=== PATIENT | male | born 1980 | race Caucasian/White ===

== ENCOUNTER → 2019-11-06 | Outpatient (REF) | payer OTHER ==
[2019-11-06 12:11] LABS: BASO % 0.5 % (0.0-1.0); EOS # 0.3 10^3/uL (0.0-0.5); EOS % 3.1 % (0.0-3.0); HEMATOCRIT 44.7 % (42.0-52.0); HEMOGLOBIN 14.7 g/dl (13.5-17.5); LYMPH # 2.4 10^3/uL (1.5-5.0); LYMPH % 28.8 % (24.0-44.0); MEAN CORPUSCULAR HEMOGLOBIN 29.2 pg (27.0-33.0); MEAN CORPUSCULAR HGB CONC 32.9 g/dl (32.0-36.5); MEAN CORPUSCULAR VOLUME 88.7 fl (80.0-96.0); MONO # 0.8 10^3/uL (0.0-0.8); MONO % 9.7 % (0.0-5.0); NEUTROPHILS # 4.9 10^3/uL (1.5-8.5); NEUTROPHILS % 57.3 % (36.0-66.0); PLATELET COUNT, AUTOMATED 244 10^3/uL (150-450); RED BLOOD COUNT 5.04 10^6/uL (4.30-6.10); WHITE BLOOD COUNT 8.5 10^3/uL (4.0-10.0)
[2019-11-06 12:43] LABS: ALBUMIN 3.9 GM/DL (3.2-5.2); ALT/SGPT 151 U/L (12-78); BILIRUBIN,TOTAL 0.5 MG/DL (0.2-1.0); BLOOD UREA NITROGEN 18 MG/DL (7-18); CALCIUM LEVEL 9.2 MG/DL (8.5-10.1); CARBON DIOXIDE LEVEL 27 MEQ/L (21-32); CHLORIDE LEVEL 106 MEQ/L (98-107); CHOLESTEROL LEVEL 252 MG/DL (<200); CHOLESTEROL RISK RATIO 6.461 (<5); CREATININE FOR GFR 0.76 MG/DL (0.70-1.30); GLOMERULAR FILTRATION RATE > 60.0 (>60); GLUCOSE, FASTING 99 MG/DL (70-100); HDL CHOLESTEROL 39 MG/DL (>40); LDL CHOLESTEROL 169 MG/DL (<100); NON-HDL-C 213 MG/DL; POTASSIUM SERUM 4.2 MEQ/L (3.5-5.1); SODIUM LEVEL 140 MEQ/L (136-145); TOTAL 25(OH) VITAMIN D 18.2 NG/ML (30.0-100.0); TOTAL PROTEIN 7.3 GM/DL (6.4-8.2); TRIGLYCERIDES LEVEL 221 MG/DL (<150)
[2019-11-06 15:23] LABS: HEMOGLOBIN A1c 5.8 %
== END ==
LOC: M LAB REF 11:49
PROVIDERS: ATTEND Family Medicine
DX: J44.9 Chronic obstructive pulmonary disease, unspecified (principal); E78.5 Hyperlipidemia, unspecified

== ENCOUNTER → 2019-11-10 | Outpatient (REF) | payer OTHER, MEDICARE ==
[2019-11-10 16:49] LABS: BASO # 0.1 10^3/uL (0.0-0.2); BASO % 0.6 % (0.0-1.0); EOS # 0.2 10^3/uL (0.0-0.5); EOS % 1.7 % (0.0-3.0); HEMATOCRIT 49.3 % (42.0-52.0); HEMOGLOBIN 16.3 g/dl (13.5-17.5); LYMPH # 2.3 10^3/uL (1.5-5.0); LYMPH % 23.5 % (24.0-44.0); MEAN CORPUSCULAR HEMOGLOBIN 30.6 pg (27.0-33.0); MEAN CORPUSCULAR HGB CONC 33.1 g/dl (32.0-36.5); MEAN CORPUSCULAR VOLUME 92.5 fl (80.0-96.0); MONO # 0.6 10^3/uL (0.0-0.8); MONO % 6.2 % (0.0-5.0); NEUTROPHILS # 6.7 10^3/uL (1.5-8.5); NEUTROPHILS % 67.6 % (36.0-66.0); PLATELET COUNT, AUTOMATED 288 10^3/uL (150-450); RED BLOOD COUNT 5.33 10^6/uL (4.30-6.10); WHITE BLOOD COUNT 9.9 10^3/uL (4.0-10.0)
[2019-11-10 17:03] LABS: ALBUMIN 3.9 GM/DL (3.2-5.2); ALT/SGPT 34 U/L (12-78); BILIRUBIN,TOTAL 0.3 MG/DL (0.2-1.0); BLOOD UREA NITROGEN 7 MG/DL (7-18); CALCIUM LEVEL 8.8 MG/DL (8.5-10.1); CARBON DIOXIDE LEVEL 26 MEQ/L (21-32); CHLORIDE LEVEL 109 MEQ/L (98-107); CHOLESTEROL LEVEL 175 MG/DL (<200); CHOLESTEROL RISK RATIO 4.375 (<5); CREATININE FOR GFR 0.81 MG/DL (0.70-1.30); FREE T4 0.94 NG/DL (0.76-1.46); GLOMERULAR FILTRATION RATE > 60.0 (>60); GLUCOSE, FASTING 86 MG/DL (70-100); HDL CHOLESTEROL 40 MG/DL (>40); LDL CHOLESTEROL 111 MG/DL (<100); NON-HDL-C 135 MG/DL; POTASSIUM SERUM 4.4 MEQ/L (3.5-5.1); SODIUM LEVEL 138 MEQ/L (136-145); THYROID STIMULATING HORMONE 0.822 uIU/ML (0.358-3.740); TOTAL 25(OH) VITAMIN D 21.5 NG/ML (30.0-100.0); TOTAL PROTEIN 7.1 GM/DL (6.4-8.2); TRIGLYCERIDES LEVEL 119 MG/DL (<150)
[2019-11-10 20:54] LABS: HEMOGLOBIN A1c 5.4 %
== END ==
LOC: M LAB REF 15:57
PROVIDERS: ATTEND Nurse Practitioner Family
DX: E78.5 Hyperlipidemia, unspecified (principal); J44.9 Chronic obstructive pulmonary disease, unspecified; M54.89 Other dorsalgia

== ENCOUNTER 2019-12-29 13:16 | Emergency (ER) | payer MEDICARE, OTHER ==
[~2019-12-29] VITALS: Ht 177.8 cm; Wt 68.4 kg
[2019-12-29 13:55] LABS: HEMATOCRIT 45.2 % (42.0-52.0); MEAN CORPUSCULAR HEMOGLOBIN 30.7 pg (27.0-33.0); MEAN CORPUSCULAR HGB CONC 33.2 g/dl (32.0-36.5); MEAN CORPUSCULAR VOLUME 92.4 fl (80.0-96.0); PLATELET COUNT, AUTOMATED 297 10^3/uL (150-450); RED BLOOD COUNT 4.89 10^6/uL (4.30-6.10)
[2019-12-29] MEDS ORDERED: INCR1INH INH (13:56)
[2019-12-29] MEDS ORDERED: ALBU8.5H INH (13:56)
[2019-12-29] MEDS ORDERED: ATOR1TAB21 PO (13:56)
[2019-12-29 14:07] LABS: INR 1.08; PROTHROMBIN TIME 13.7 SECONDS (11.8-14.0)
[2019-12-29 14:19] LABS: D-DIMER QUANT 3418.33 ng/ml (<500)
[2019-12-29] MEDS ORDERED: KETOROLAC 30 MG/ML 1ML VIAL IV ONE (14:30)
[2019-12-29] MEDS ORDERED: ISOVUE-370 76% 100ML VIAL As Ordered ONE (14:35)
[2019-12-29 17:58] VITALS: BP 111/63
--- NOTE | 2019-12-29 17:59 | REP ---
CHEST: Single view. There is no evidence of acute infiltrate. No pleural effusion is seen. The heart is normal in size. The mediastinal silhouette is unremarkable. The visualized osseous structures are intact. IMPRESSION: No acute pulmonary disease. Electronically Signed by Juan Dickinson MD 12/30/2019 04:48 P
--- NOTE | 2019-12-29 21:03 | ECGEPIP ---
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
--- NOTE | 2019-12-30 00:26 | REP ---
REASON: Pleuritic chest pain. PRIORS: None. CONTRAST: 75 mL Isovue-370. There is excellent visualization of the pulmonary arterial vasculature. There are no focal filling defects present that would be considered consistent with acute pulmonary emboli. There is no mediastinal or hilar adenopathy. There are no pleural or pericardial effusions. The imaged upper abdomen and imaged osseous structures are within normal limits. Evaluation of the lung newton shows the lung newton to be hypoexpanded with emphysematous changes throughout, particularly affecting the apical regions, where there is evidence of biapical pleural parenchymal scarring. Parenchymal bullae and pleural blebs are also seen in the upper lung newton. No significant abnormal nodules or masses are present. IMPRESSION: 1. There is no evidence of a pulmonary embolus. 2. Chronic lung field changes, as described above. Consider pulmonary consultation and followup if clinically relevant. Electronically Signed by Giacomo Duron DO 12/30/2019 12:38 P
--- NOTE | 2019-12-30 13:18 | ED PDOC ---
Post-Departure Follow-Up pt needs fu for formal report of cta chest. please see [email or web address] pcp listed. obt ain pcp and fax. if no pcp refer to [facility] and fax Sergio Crocker MD Dec 30, 2019 13:18
== END 2019-12-29 18:00 | disposition home or self-care (01) ==
LOC: EDBD 13:16 → M ED 13:16
DX: R07.9 Chest pain, unspecified (principal); R06.02 Shortness of breath; Z87.09 Personal history of other diseases of the respiratory system; F17.200 Nicotine dependence, unspecified, uncomplicated; Z91.040 Latex allergy status; Z88.5 Allergy status to narcotic agent; Z79.899 Other long term (current) drug therapy
CPT/HCPCS: 71045; 71275; 80047; 84484; 85027; 85379; 85610; 93005; 96374; 99284; J1885; Q9967

== ENCOUNTER 2019-12-31 15:19 | Emergency (ER) | payer MEDICARE, MEDICAID ==
[~2019-12-31] VITALS: Ht 177.8 cm; Wt 67.3 kg
[~2019-12-31 15:19] MED LIST: ALBU8.5H INH; ATOR1TAB21 PO; INCR1INH INH
[2019-12-31] MEDS ORDERED: NAPROXEN 250 MG TAB PO ONE (16:00)
[2019-12-31] MEDS ORDERED: NAPR-837 PO (16:53)
[2019-12-31 17:00] VITALS: BP 127/72
--- NOTE | 2019-12-31 20:52 | ECGEPIP ---
[facility] - ED Test Date: 2019-12-31 Pat Name: KAYKAY KELLER Department: Room: - Gender: Male Rn Stars: keeley : 1980 Requested By: Melani Ramos Order Number: [id number] Reading MD: Iraj Lua Measurements Intervals [place] Rate: 66 P: 52 [place]: 145 QRS: 68 QRSD: 109 T: 53 QT: 405 QTc: 426 Interpretive Statements SINUS RHYTHM MODERATE INTRAVENTRICULAR CONDUCTION DELAY SIMILAR TO 12/29/19 Electronically Signed on 12-31-2019 20:52:16 EDT by Iraj Lua
--- NOTE | 2019-12-31 23:45 | REP ---
CHEST: REASON: Chest pain. FINDINGS: The technique utilized in obtaining the radiograph has magnified the cardiac silhouette and accentuated the interstitial markings. The superior mediastinal structures are midline. The cardiac silhouette is unremarkable in size, shape, and position. The diaphragmatic surfaces of the lungs are regular, and the costophrenic angles are clear. The pulmonary newton are clear. The imaged osseous structures are intact. IMPRESSION: There is no acute cardiopulmonary disease. Electronically Signed by Giacomo Duron DO 01/01/2020 11:23 A
== END 2019-12-31 17:09 | disposition home or self-care (01) ==
LOC: M ED 15:19
DX: R07.89 Other chest pain (principal); R94.31 Abnormal electrocardiogram [ECG] [EKG]; F17.200 Nicotine dependence, unspecified, uncomplicated; Z79.899 Other long term (current) drug therapy; Z91.040 Latex allergy status; Z88.5 Allergy status to narcotic agent; Z98.890 Other specified postprocedural states; Z87.09 Personal history of other diseases of the respiratory system

== ENCOUNTER → 2020-04-21 | Outpatient (REF) | payer MEDICARE, MEDICAID ==
[~2020-04-21] MED LIST changes: +NAPR-837 PO
[2020-04-21 17:28] LABS: BASO # 0.1 10^3/uL (0.0-0.2); BASO % 0.6 % (0.0-1.0); EOS # 0.1 10^3/uL (0.0-0.5); EOS % 0.9 % (0.0-3.0); HEMATOCRIT 47.6 % (42.0-52.0); HEMOGLOBIN 15.5 g/dl (13.5-17.5); LYMPH # 2.4 10^3/uL (1.5-5.0); LYMPH % 24.7 % (24.0-44.0); MEAN CORPUSCULAR HEMOGLOBIN 29.9 pg (27.0-33.0); MEAN CORPUSCULAR HGB CONC 32.6 g/dl (32.0-36.5); MEAN CORPUSCULAR VOLUME 91.9 fl (80.0-96.0); MONO # 0.6 10^3/uL (0.0-0.8); MONO % 5.7 % (0.0-5.0); NEUTROPHILS # 6.7 10^3/uL (1.5-8.5); PLATELET COUNT, AUTOMATED 312 10^3/uL (150-450); RED BLOOD COUNT 5.18 10^6/uL (4.30-6.10); WHITE BLOOD COUNT 9.8 10^3/uL (4.0-10.0)
[2020-04-21 17:35] LABS: ALT/SGPT 16 U/L (12-78); BILIRUBIN,TOTAL 0.3 MG/DL (0.2-1.0); BLOOD UREA NITROGEN 9 MG/DL (7-18); CALCIUM LEVEL 9.3 MG/DL (8.5-10.1); CARBON DIOXIDE LEVEL 28 MEQ/L (21-32); CHLORIDE LEVEL 107 MEQ/L (98-107); CHOLESTEROL LEVEL 168 MG/DL (<200); CREATININE FOR GFR 0.87 MG/DL (0.70-1.30); GLOMERULAR FILTRATION RATE > 60.0 (>60); GLUCOSE, FASTING 90 MG/DL (70-100); HDL CHOLESTEROL 40 MG/DL (>40); LDL CHOLESTEROL 107 MG/DL (<100); NON-HDL-C 128 MG/DL; POTASSIUM SERUM 4.5 MEQ/L (3.5-5.1); SODIUM LEVEL 137 MEQ/L (136-145); TOTAL PROTEIN 7.1 GM/DL (6.4-8.2); TRIGLYCERIDES LEVEL 106 MG/DL (<150)
[2020-04-21 17:42] LABS: TOTAL 25(OH) VITAMIN D 36.3 NG/ML (30.0-100.0)
== END ==
LOC: M LAB REF 16:11
PROVIDERS: ATTEND Nurse Practitioner Family
DX: F17.200 Nicotine dependence, unspecified, uncomplicated (principal); J44.9 Chronic obstructive pulmonary disease, unspecified; E78.5 Hyperlipidemia, unspecified

== ENCOUNTER 2020-08-14 10:58 | Inpatient (IN) | payer MEDICARE, MEDICAID ==
[2020-08-14] VITALS (19 sets, daily range): BP systolic 103–131; BP diastolic 63–83
[~2020-08-14] VITALS: Ht 177.8 cm; Wt 62.9 kg
[2020-08-14] MEDS ORDERED: MORPHINE 4 MG/ML 1ML VIAL/SYRINGE (J2270) IV PRN (11:35)
[2020-08-14] MEDS ORDERED: ONDANSETRON 4MG/2ML VIAL IV ONE (11:35)
--- NOTE | 2020-08-14 11:35 | REP ---
INDICATION: sob. COMPARISON: 12/31/2019. TECHNIQUE: SINGLE PORTABLE AP VIEW OF THE CHEST WAS PERFORMED. FINDINGS: There is a large right pneumothorax. There is slight shift of heart mediastinal structures to the left. Right lung atelectasis is present. Left lung is clear. Heart is normal in size. IMPRESSION: Large right pneumothorax with right lung atelectatic changes. Critical Findings: Large right pneumothorax with slight shift of heart mediastinal structures to the left. The critical information above was relayed directly by me by telephone to Melani Ramos on 08/14/2020 at 11:31 am with readback verification. <Electronically signed by Juan Dickinson > 08/14/20 1137
[2020-08-14] MEDS ORDERED: PERCOCET 5MG/325MG TAB PO PRN (11:40)
[2020-08-14] MEDS ORDERED: KCL 20MEQ IN D5/NS 1000ML 1,000 ML IV SCH (11:40)
[2020-08-14] MEDS ORDERED: LEVALBUTEROL 1.25 MG/0.5 ML CONCENTRATE NEB NEB PRN (11:40)
[2020-08-14] MEDS ORDERED: ACETAMINOPHEN TAB 650MG DOSE (2X325MG) PO PRN (11:40)
[2020-08-14] MEDS ORDERED: BISACODYL 10 MG SUPP PR PRN (11:40)
[2020-08-14] MEDS ORDERED: ONDANSETRON 4MG/2ML VIAL IV PRN (11:40)
[2020-08-14] MEDS ORDERED: MIDAZOLAM INJ 2MG/2ML VIAL (J2250 PER 1MG) As Ordered ONE ×2 (11:55→11:56)
[2020-08-14] MEDS ORDERED: LIDOCAINE 1% MDV 20ML VIAL As Ordered ONE (11:55)
[2020-08-14] MEDS ORDERED: flumazeniL 0.5 MG/5 ML VIAL As Ordered ONE (11:56)
[2020-08-14 12:05] LABS: HEMATOCRIT 49.8 % (42.0-52.0); HEMOGLOBIN 16.5 g/dl (13.5-17.5); MEAN CORPUSCULAR HEMOGLOBIN 30.4 pg (27.0-33.0); MEAN CORPUSCULAR HGB CONC 33.1 g/dl (32.0-36.5); MEAN CORPUSCULAR VOLUME 91.9 fl (80.0-96.0); PLATELET COUNT, AUTOMATED 281 10^3/uL (150-450); RED BLOOD COUNT 5.42 10^6/uL (4.30-6.10); WHITE BLOOD COUNT 12.6 10^3/uL (4.0-10.0)
[2020-08-14 12:15] LABS: INR 0.96
[2020-08-14 12:27] LABS: BLOOD UREA NITROGEN 11 MG/DL (7-18); CALCIUM LEVEL 9.6 MG/DL (8.5-10.1); CARBON DIOXIDE LEVEL 27 MEQ/L (21-32); CHLORIDE LEVEL 107 MEQ/L (98-107); CREATININE FOR GFR 0.95 MG/DL (0.70-1.30); GLOMERULAR FILTRATION RATE > 60.0 (>60); GLUCOSE, FASTING 94 MG/DL (70-100); POTASSIUM SERUM 4.3 MEQ/L (3.5-5.1); SODIUM LEVEL 139 MEQ/L (136-145)
[2020-08-14 12:36] LABS: RSV AMPLIFICATION NEGATIVE (NEGATIVE)
[2020-08-14] MEDS ORDERED: LIDOCAINE 1% MDV 20ML VIAL SC ONE (13:00)
[2020-08-14] MEDS ORDERED: MIDAZOLAM INJ 2MG/2ML VIAL (J2250 PER 1MG) IV ONE ×2 (13:00)
--- NOTE | 2020-08-14 13:22 | HPEPDOC ---
[facility] Medical History & Physical Date of Admission Aug 14, 2020 Date of Service: Aug 14, 2020 Other Provider PCP: BRYAN Hoyt Attending Physician: CARLOS CONTI DO History and Physical CHIEF COMPLAINT: Shortness of breath, spontaneous right-sided pneumothorax HISTORY OF PRESENT ILLNESS: The patient reports that he woke up at approximately 4:30 AM this morning without any symptoms, he went back to bed and then later at 6 AM or so he woke up with sudden onset of shortness of breath and cough. He has had 2 pneumothoraces in the past, and suspected that this may be the same thing going on, therefore he presented to the emergency department for further evaluation. CODE STATUS: Full code PAST MEDICAL HISTORY: COPD Hyperlipidemia Tobacco use PAST SURGICAL HISTORY: Right knee surgical repair Vasectomy Chest tube 2 in the past for treatment of spontaneous pneumothorax Multiple dental procedures primarily to remove teeth SOCIAL HISTORY: Lives at home, no longer working, now on disability. Previous experience with travel to the [facility] Has 4 cats and 2 Dogs at Home Smokes at least one pack [place] day [place]filtered [place] 20 [place] pack history Drinks alcohol only socially, reports that a 12 pack will last him almost a year Denies illicit drug use FAMILY HISTORY: His sister and his father have diabetes REVIEW OF SYSTEMS: Constitutional: Patient denies fevers, chills, night sweats, recent weight gain/loss. HEENT: Patient denies blurred or double vision, transient visual disturbances, postnasal drip, epistaxis, sore throat. Cardiovascular: Patient denies palpitations, orthopnea, leg edema. Respiratory: He does have significant dyspnea even at rest. He does have a nonproductive cough, and he also has a long-time smokers cough. Gastrointestinal: Patient denies nausea, vomiting, diarrhea, constipation, abdominal pain, melena, hematochezia, hematemesis, jaundice. PHYSICAL EXAMINATION: General: Pleasant, awake, alert, does not appear to be in acute distress at this time. HEENT: Head normocephalic atraumatic, conjunctiva are pink, sclera are nonicteric, buccal mucosa is pink and moist with no lesions in the oropharynx. Hearing is grossly intact to conversation. Respiratory: Lungs sounds are essentially absent on the right side, clear to auscultation on the left Cardiovascular: Regular rate and rhythm, with no rubs, gallops, or murmur. Abdomen: Soft, nontender, nondistended, no hepatosplenomegaly appreciated. Bowel sounds present. Extremities: 2+ pulses in the radial and dorsalis pedis bilaterally. No evidence of clubbing or cyanosis. IMAGING: Chest x-ray reveals right-sided pneumothorax ASSESSMENT: 40-year-old male with a spontaneous pneumothorax in the setting of COPD and bullous lung disease. Hyperlipidemia PLAN: Consult to cardiothoracic surgery has been placed. Their input in the matter is greatly appreciated, will defer to their judgment regarding how to proceed with treatment. Home dose of atorvastatin has been continued to treat hyperlipidemia. DVT Prophylaxis with TEDs & Sequentials Vital Signs Vital Signs Date Time Temp Pulse Resp B/P (MAP) Pulse Ox O2 Delivery O2 Flow Rate FiO2 08/14/20 12:53 99.1 72 18 126/79 (95) 99 Nasal Cannula 4.0 08/14/20 11:30 96 Laboratory Data Labs 24H Laboratory Tests 2 08/14/20 11:50: Nucleated Red Blood Cells % (auto) 0.0, Prothrombin Time 13.0, Prothromb Time International Ratio 0.96, Anion Gap 5L, Glomerular Filtration Rate > 60.0, Calcium Level 9.6, Coronavirus (COVID-19)(PCR) NEGATIVE, Influenza Type A (RT- PCR) NEGATIVE, Influenza Type B (RT-PCR) NEGATIVE, Respiratory Syncytial Virus (PCR) NEGATIVE CBC/BMP Laboratory Tests 08/14/20 11:50 Home Medications Scheduled Atorvastatin Calcium (Atorvastatin Calcium) 20 Mg Tablet, 20 M PO DAILY Umeclidinium [place] (Incruse Ellipta) 62.5 Mcg Blst.w.dev, 1 PUFF INH DAILY Scheduled PRN Albuterol Sulfate (Albuterol Sulfate Hfa) 8.5 Gm Hfa.aer.ad, 2 PUFF INH PRN PRN for SHORTNESS OF BREATH Allergies Coded Allergies: latex (Verified Allergy, Unknown, hives, 12/29/19) tramadol (Verified Adverse Reaction, Unknown, nausea, 12/29/19) A-FIB/CHADSVASC A-FIB History Current/History of A-Fib/PAF?: No CARLOS CONTI DO Aug 14, 2020 13:22
[2020-08-14 13:54] LABS: ABG BASE EXCESS -3.4 (-2.0-2.0); ABG HCO3 21.7 MEQ/L (22.0-26.0); ABG PARTIAL PRESSURE CO2 39.8 mmHg (35.0-45.0); ABG PARTIAL PRESSURE O2 102.1 mmHg (75.0-100.0); ABG STANDARD HCO3 21.7 MEQ/L (22.0-26.0); ABG TOTAL CO2 22.9 MEQ/L (22.0-29.0); ABG pH (ARTERIAL) 7.355 UNITS (7.350-7.450)
[2020-08-14] MEDS: LEVALBUTEROL 1.25 MG/0.5 ML CONCENTRATE NEB NEB SCH ×2 (14:00→19:51)
[2020-08-14] MEDS: KETOROLAC 30 MG/ML 1ML VIAL IV SCH ×2 (14:17→20:44)
[2020-08-14] MEDS: NICOTINE 21MG/24HR 1 EA TRANSDERMAL TD SCH (14:20)
--- NOTE | 2020-08-14 14:54 | REP ---
INDICATION: pnthx, after Chest tube placement. COMPARISON: 08/14/2020 11:20 a.m.. TECHNIQUE: SINGLE PORTABLE AP VIEW OF THE CHEST WAS PERFORMED. FINDINGS: There is placement of right chest tube. The right pneumothorax has significantly decreased with mild residual inferiorly and laterally. There is mild residual right lower lobe atelectasis. Left lung remains clear. Heart mediastinum are unremarkable. IMPRESSION: Insertion of right chest tube. Large right pneumothorax has significantly improved with mild residual at the right costophrenic angle. There is mild residual right lower lobe atelectatic change. <Electronically signed by Juan Dickinson > 08/14/20 [id number]
[2020-08-14] MEDS: DOCUSATE SODIUM 100MG CAPSULE PO SCH (20:47)
[2020-08-14] MEDS: HEPARIN SOD (PORCINE) 5000UNITS/ML 1ML VIAL/SYRINGE SC SCH (20:48)
[2020-08-15] VITALS: BP 106/61
[2020-08-15] MEDS: LEVALBUTEROL 1.25 MG/0.5 ML CONCENTRATE NEB NEB SCH ×4 (02:00→20:38)
[2020-08-15] MEDS: KETOROLAC 30 MG/ML 1ML VIAL IV SCH ×4 (02:31→20:00)
[2020-08-15 04:32] VITALS: BP 108/62
[2020-08-15 04:41] LABS: BASO % 0.3 % (0.0-1.0); EOS # 0.1 10^3/uL (0.0-0.5); HEMOGLOBIN 14.8 g/dl (13.5-17.5); LYMPH # 2.6 10^3/uL (1.5-5.0); LYMPH % 26.6 % (24.0-44.0); MEAN CORPUSCULAR HEMOGLOBIN 30.4 pg (27.0-33.0); MEAN CORPUSCULAR HGB CONC 32.9 g/dl (32.0-36.5); MEAN CORPUSCULAR VOLUME 92.4 fl (80.0-96.0); MONO # 0.7 10^3/uL (0.0-0.8); MONO % 7.3 % (2.0-8.0); NEUTROPHILS # 6.4 10^3/uL (1.5-8.5); NEUTROPHILS % 64.4 % (36.0-66.0); PLATELET COUNT, AUTOMATED 242 10^3/uL (150-450); RED BLOOD COUNT 4.87 10^6/uL (4.30-6.10); WHITE BLOOD COUNT 9.9 10^3/uL (4.0-10.0)
[2020-08-15 04:59] LABS: BLOOD UREA NITROGEN 11 MG/DL (7-18); CALCIUM LEVEL 8.6 MG/DL (8.5-10.1); CARBON DIOXIDE LEVEL 27 MEQ/L (21-32); CHLORIDE LEVEL 107 MEQ/L (98-107); CREATININE FOR GFR 0.93 MG/DL (0.70-1.30); GLOMERULAR FILTRATION RATE > 60.0 (>60); GLUCOSE, FASTING 95 MG/DL (70-100); POTASSIUM SERUM 4.5 MEQ/L (3.5-5.1); SODIUM LEVEL 139 MEQ/L (136-145)
[2020-08-15] MEDS: NORCO, ANEXSIA 5/325MG TABLET (HYDROcodone/ACETAMINOPHEN) PO PRN (05:01)
[2020-08-15 06:05] LABS: ABG BASE EXCESS -1.1 (-2.0-2.0); ABG HCO3 23.4 MEQ/L (22.0-26.0); ABG O2 SATURATION 99.5 % (95.0-99.0); ABG PARTIAL PRESSURE CO2 38.9 mmHg (35.0-45.0); ABG PARTIAL PRESSURE O2 158.8 mmHg (75.0-100.0); ABG STANDARD HCO3 23.6 MEQ/L (22.0-26.0); ABG TOTAL CO2 24.6 MEQ/L (22.0-29.0); ABG pH (ARTERIAL) 7.398 UNITS (7.350-7.450)
--- NOTE | 2020-08-15 07:39 | REPVR ---
PROCEDURE INFORMATION: Exam: CT Chest Without Contrast; Diagnostic Exam date and time: 08/15/2020 7:03 AM Age: 40 years old Clinical indication: Condition or disease; Lung condition and disease; Emphysema and pneumothorax; Additional info: Emphysematous diseae, pnthx x3 TECHNIQUE: Imaging protocol: Diagnostic computed tomography of the chest without contrast. 3D rendering (Not supervised by radiologist): MIP and/or 3D reconstructed images were created by the technologist. Radiation optimization: All CT scans at this facility use at least one of these dose optimization techniques: automated exposure control; mA and/or kV adjustment per patient size (includes targeted exams where dose is matched to clinical indication); or iterative reconstruction. COMPARISON: CT ANGIO CHEST 12/29/2019 2:34 PM FINDINGS: Limitations: Examination is limited by motion artifact. Tubes, catheters and devices: Right pleural chest tube with the tip at the apex. Bronchial tree: Visualized bronchial tree is unremarkable. Lungs: Paraseptal emphysematous lung disease. Scattered linear atelectasis bilaterally. Dependent atelectasis in the lung. Pleural spaces: Unremarkable. No pneumothorax. No pleural effusion. Heart: Heart size is within normal limits. Coronary arteries: Mild coronary artery calcification. Aorta: Unremarkable. No aortic aneurysm. Lymph nodes: Unremarkable. No enlarged lymph nodes. Bones/joints: Unremarkable. No acute fracture. Soft tissues: Small soft tissue emphysema in the superior right chest wall. IMPRESSION: 1. No pneumothorax. 2. Emphysematous lung disease. 3. Mild coronary artery calcification. Electronically signed by: Caesar Petty On 08/15/2020 07:40:11 AM
[2020-08-15 07:42] VITALS: BP 110/69
[2020-08-15] MEDS ORDERED: SLF 3 ML SYR IV PRN (07:45)
[2020-08-15] MEDS: HEPARIN SOD (PORCINE) 5000UNITS/ML 1ML VIAL/SYRINGE SC SCH ×2 (08:42→20:00)
[2020-08-15] MEDS: NICOTINE 21MG/24HR 1 EA TRANSDERMAL TD SCH (08:43)
[2020-08-15] MEDS: ATORVASTATIN 20 MG TAB PO SCH (08:43)
[2020-08-15] MEDS: PANTOPRAZOLE 40MG TAB (PROTONIX) PO SCH (08:43)
[2020-08-15] MEDS: DOCUSATE SODIUM 100MG CAPSULE PO SCH ×2 (08:43→20:00)
[2020-08-15] MEDS: MOM 30ML SUSPENSION UDC PO SCH (08:44)
--- NOTE | 2020-08-15 08:55 | REP ---
INDICATION: pnthx, after Chest tube placement. COMPARISON: CT chest 08/15/2020, AP portable chest 08/14/2020 (2). TECHNIQUE: Two views FINDINGS: Right anterior chest tube extends to the apex. Appears to be a very subtle subpleural lucency in the superolateral aspect of the right lung field. The chest tube extends to the apex unchanged. I note that the chest CT done at this same time does not show any pneumothorax in this region but does have some subcutaneous emphysema and linear fibro atelectatic change in this region. There is some linear atelectatic change in the right lower lobe just above the diaphragm. The left lung was clear. Cannot confirm a definite effusion. The heart, mediastinal, hilar contours and the airway were intact. Aorta unremarkable. Bony thorax unchanged. IMPRESSION: 1. Right apex chest tube unchanged position from last evening. Subtle lucency in the subpleural right lateral apex near the chest tube which likely represents some of the subcutaneous emphysema or subpleural fibro atelectatic change seen on the chest CT done immediately after this radiograph. There was no pneumothorax on chest CT. Basilar linear fibro atelectatic change noted. No basilar pneumothorax. Left lung clear. Heart, airway and mediastinal contours normal. <Electronically signed by Edmund Glez > 08/15/20 0842
--- NOTE | 2020-08-15 10:47 | CR ---
CONSULTATION DATE: 08/14/2020 REASON FOR CONSULTATION: The patient is seen at the request of Dr. Staton in the emergency room for the hospitalist service for shortness of breath and a pneumothorax. HISTORY OF PRESENT ILLNESS: The patient is a 40-year-old white male who has a history of two spontaneous pneumothoraces on the right in 2013 and 2011. These were treated with a chest tube with a prolonged hospital admission in 2013, secondary to an air leak. This morning, he awoke around 6 or 7 o'clock with sharp chest pain in the right upper hemithorax. This was accompanied by shortness of breath and a cough. He usually has a smoker's cough, but does not bring up any sputum. There has been no fever, chills, or sweats. No dysphagia and no weight loss. He is a smoker of one pack per day that he obtains from the [employer] [facility] the [facility]. PAST MEDICAL HISTORY: 1. Known COPD treated by Dr. Carpio. 2. Hypercholesterolemia. 3. Degenerative disc disease causing complete disability. 4. Denies diabetes or thyroid disease. MEDICATIONS: 1. Albuterol two puffs b.i.d. p.r.n. shortness of breath. 2. Atorvastatin 20 mg q. day. 3. Incruse Ellipta 62.5 mg one puff q. day. TRAVEL HISTORY: He has been to the [facility] and [facility]. He has also been in the and has been to [place]. He left the in 2004. EXPOSURES: Four cats and two dogs at home. A Pit bull Doxin mix. OCCUPATIONAL HISTORY: He is now disabled. He used to be in the and driving trucks. He has worked in a [employer]. As he calls it "a care assistant." No exposure to tuberculosis. No convincing asbestos exposure. HABITS: Smokes one pack per day. Drinks socially and denies illicit drugs. FAMILY HISTORY: Not pertinent to the acute situation. REVIEW OF SYSTEMS: Constitutional: Without fever, chills, sweats, or night sweats. Without weight loss. Eyes: Wears glasses without diplopia or prior jaundice. Without amaurosis fugax. Nose with epistaxis. Mouth is edentulous. Respiratory: See HPI. Cardiac: See HPI; without peripheral edema, orthopnea, or paroxysmal nocturnal dyspnea. He is able to perform all tasks of daily living without getting short of breath. GI: Without nausea, vomiting, diarrhea, constipation, melena, hematochezia, or abdominal pain. : Without dysuria, hematuria, or history of renal stones. Endocrine: Without diabetes or known thyroid disease. Neurologic: Without paresthesias, paralysis, or seizures. Without prior CVAs. Psychiatric: Without pathologic anxieties, depressions, or psychoses. PHYSICAL EXAMINATION: GENERAL APPEARANCE: Well-developed and well-nourished white male in mild distress with shortness of breath. VITAL SIGNS: Temperature 99.1, heart rate 72 with a regular rate and rhythm. Respiratory rate is 18 without the use of accessory muscles. He was 99% saturated on 4 liters nasal cannula. His blood pressure was 126/79. EYES: Pupils equal, round, and reactive to light. Extraocular movements intact. Sclerae nonicteric. Nose without deformity. MOUTH: Shows the mucous membranes to be pink and moist. Lips and gums without lesions. There is no thrush. He is edentulous. NECK: Supple. There is no jugular venous distention. No subcutaneous emphysema. Trachea is midline. There is no lymphadenopathy or thyromegaly. He has 2+ carotid upstrokes without bruits. LUNGS: Show hyperresonant percussion note on the right side. Breath sounds are also decreased on the right side. Left side shows normal vesicular sounds without wheezes, rhonchi, or rales. CARDIAC: Without murmurs, clicks, gallops, or rubs. I cannot feel his PMI. S1, S2 are normal. ABDOMEN: Soft and nontender. Bowel sounds are positive. There is no hepatosplenomegaly. No CVA tenderness. EXTREMITIES: Show no pretibial edema. No calf tenderness. No differential swelling of the upper extremities. SKIN: Warm, dry, and perfuse without cyanosis or mottling including that of the nail beds and knees. NEUROLOGIC: Shows 2 through 12 intact. Normal gross motor and gross sensation intact. Gait was not tested. PSYCHIATRIC: Shows him to b awake, alert, and oriented x3 with appropriate mood and affect and conversational. DIAGNOSTIC STUDIES: His white count is 12.6 with hemoglobin and hematocrit of 16.5 and 49.8. Platelet count is 281,000. There is no differential. Chemistries show normal electrolytes with a BUN and creatinine of 11 and 0.95 with a glucose of 94 and a calcium of 9.6. PT/INR are 13.0 and 0.96 respectively. He is COVID negative. Chest x-ray shows a 50% to 75% pneumothorax on the right. There is a slight mediastinal shift to the left. A CT scan done on 12/29/2019 for chest pain did not show a pulmonary embolism. He shows extensive bullous and emphysematous disease in both lungs, right greater than left. I saw no obvious masses on the 12/2019 CT scan. IMPRESSION: 1. Spontaneous pneumothorax recurrent x3 on the right. 2. Chronic obstructive pulmonary disease (COPD). 3. Emphysematous bullous disease. 4. Hypercholesterolemia. 5. Tobacco abuse. PLAN AND DISCUSSION: I will place a chest tube to relieve the pneumothorax. As this is his third occurrence, we will take him to the operating room sometime later this week for a talc pleurodesis and wedge resection of the bulla. I have counseled him that his smoking days are over, and I will prescribe a nicotine patch. He states that they do not work with him as he has no willpower at home. Perhaps having to undergo surgery may concentrate his mind with regard to smoking cessation.
[2020-08-15 12:00] VITALS: BP 113/63
[2020-08-15] MEDS: PERCOCET 5MG/325MG TAB PO PRN (14:06)
[2020-08-15] MEDS: SLF 3 ML SYR IV SCH ×2 (14:06→20:00)
[2020-08-15 16:00] VITALS: BP 125/72
--- NOTE | 2020-08-15 17:21 | IPNPDOC ---
Text Note Date of Service The patient was seen on 08/15/20. NOTE Subjective: Patient is a 40-year-old male who presents with spontaneous pneumo thorax managed by cardiothoracic surgery with a chest tube. He presented to the emergency room from home on August 14 with sharp right upper chest pain. The patient immediately recognized the symptoms consistent with a pneumothorax due to his history of 2 spontaneous pneumothoraces in 2011 in 2013. He has an extensive unfiltered cigarette smoking history. Nursing staff and patient report no overnight events. Cardiothoracic surgery plans to perform a talc pleurodesis and wedge resection of the bullae found on CT scan done on 12/29/2019 for chest pain showing extensive bullous emphysematous disease in bilateral lungs. Objective: General: Pleasant, NAD HEENT: NC, AT. EOMI, no scleral icterus. CV: RRR, Normal S1 and S2. No murmurs, gallops, or rubs. Resp: CTAB with full breath sounds. No wheezes, crackles, or rhonchi. No dullness to percussion. Abdomen: Bowel sounds present. Soft, NT, ND. Extremities: No swelling or edema. Assessment/Plan: #Pneumothorax Cardiothoracic surgery is following. Patient to have a pleurodesis and wedge resection, cardiothoracic surgery input is greatly valued. [place], Percocet, and Toradol being administered for pain at this time. Patient is receiving IV cefazolin for preop antibacterial coverage. EKG completed, results pending. #COPD Continue levalbuterol 1.25 mg nebulized solution every 6 hours. #Hyperlipidemia Continue atorvastatin 20 mg daily. GI prophylaxis: Protonix 40 mg daily DVT prophylaxis: Teds and sequentials. VS,Fishbone, I+O VS, Fishbone, I+O Laboratory Tests 08/15/20 04:25 Vital Signs Date Time Temp Pulse Resp B/P (MAP) Pulse Ox O2 Delivery O2 Flow Rate FiO2 08/15/20 16:00 97.3 81 18 125/72 (89) 97 Room Air 08/14/20 20:00 08/14/20 14:01 96 l I&O- Last 24 Hours up to 6 AM 08/15/20 06:00 Intake Total 2035 ml Output Total 2235 ml Balance -200 ml GME ATTESTATION GME ATTESTATION My faculty preceptor for this patient encounter was physically present during the encounter and was fully available. All aspects of the patient interview, examination, medical decision making process, and medical care plan development were reviewed and approved by the faculty preceptor. The faculty preceptor is aware and concurs with the plan as stated in the body of this note and will att est to such by his/her cosignature. ATTENDING NOTE I, Kyle Sutton MD, have independently examined this patient and performed my own physical exam, as well as reviewed the documentation and edited where necessary. I have discussed in detail with the resident / student the findings and plan of treatment as documented by the resident / student and edited their note. I agree with their findings and treatment plan and have edited their documentation. Jaleel Trent DO Aug 15, 2020 17:21 KYLE SUTTON MD Aug 19, 2020 14:51
--- NOTE | 2020-08-15 19:26 | ECGEPIP ---
[facility] Test Date: 2020-08-15 Pat Name: KAYKAY KELLER Department: Room: [place] [address] Gender: Male Manager Ambulatory: ALAN : 1980 Requested By: Jaleel Hughes Order Number: [id number] Reading MD: Jessica Aponte Measurements Intervals [place] Rate: 66 P: 57 [place]: 146 QRS: 69 QRSD: 108 T: 59 QT: 398 QTc: 417 Interpretive Statements Normal sinus rhythm NO CHANGE COMPARED TO 12/31/2019 Electronically Signed on 08-15-2020 19:26:44 EST by Jessica Aponte
[2020-08-15 20:00] VITALS: BP 133/76
[2020-08-16] VITALS: BP 103/64
[2020-08-16] MEDS: LEVALBUTEROL 1.25 MG/0.5 ML CONCENTRATE NEB NEB SCH ×4 (02:00→19:58)
[2020-08-16] MEDS: KETOROLAC 30 MG/ML 1ML VIAL IV SCH ×4 (02:38→19:59)
[2020-08-16 04:00] VITALS: BP 113/68
[2020-08-16 05:16] LABS: BASO % 0.4 % (0.0-1.0); EOS # 0.2 10^3/uL (0.0-0.5); EOS % 1.8 % (0.0-3.0); HEMATOCRIT 45.3 % (42.0-52.0); HEMOGLOBIN 14.6 g/dl (13.5-17.5); LYMPH # 2.2 10^3/uL (1.5-5.0); LYMPH % 24.5 % (24.0-44.0); MEAN CORPUSCULAR HEMOGLOBIN 29.7 pg (27.0-33.0); MEAN CORPUSCULAR HGB CONC 32.2 g/dl (32.0-36.5); MEAN CORPUSCULAR VOLUME 92.3 fl (80.0-96.0); MONO # 0.8 10^3/uL (0.0-0.8); MONO % 8.9 % (2.0-8.0); NEUTROPHILS # 5.9 10^3/uL (1.5-8.5); PLATELET COUNT, AUTOMATED 259 10^3/uL (150-450); RED BLOOD COUNT 4.91 10^6/uL (4.30-6.10); WHITE BLOOD COUNT 9.1 10^3/uL (4.0-10.0)
[2020-08-16 05:33] LABS: BLOOD UREA NITROGEN 12 MG/DL (7-18); CALCIUM LEVEL 8.6 MG/DL (8.5-10.1); CARBON DIOXIDE LEVEL 26 MEQ/L (21-32); CHLORIDE LEVEL 111 MEQ/L (98-107); CREATININE FOR GFR 1.06 MG/DL (0.70-1.30); GLOMERULAR FILTRATION RATE > 60.0 (>60); GLUCOSE, FASTING 90 MG/DL (70-100); POTASSIUM SERUM 4.9 MEQ/L (3.5-5.1); SODIUM LEVEL 141 MEQ/L (136-145)
[2020-08-16] MEDS: SLF 3 ML SYR IV SCH ×3 (05:38→21:00)
[2020-08-16] MEDS ORDERED: MUPIROCIN 2% OINT 22 GM TUBE TOP ONE (06:00)
[2020-08-16] MEDS ORDERED: ceFAZolin SOD 2 GM in IV 1 EA IV ONE (06:00)
[2020-08-16 07:21] VITALS: BP 117/64
--- NOTE | 2020-08-16 08:11 | IPN ---
PROGRESS NOTE DATE: 08/15/2020 SUBJECTIVE: Mr. Bautista has had an uneventful 24 hours after having his chest tube placed yesterday. He is breathing better and his pain is being well-controlled at the chest tube insertion site. OBJECTIVE: VITAL SIGNS: Show a T-max of 98.0 with a heart rate that ranges between 60 and 65 in sinus rhythm. Respiratory rate of 16 to 18 without the use of accessory muscles who was 97% to 100% saturated on room air and whose blood pressure is ranging between 106/61 to 113/63. INTAKE AND OUTPUT: Over the past 24 hours has been recorded as 5 in and 1535 out for a positivity of 500 mL. He has put 10 mL out the chest tube and there is no air leak. Weight is 65.9 kg today compared to 65.3 kg yesterday. RESPIRATORY: He has equal breath sounds on either side with normal vesicular sounds. He does have some inspiratory rales, however, at the left lower base. His pneumothorax was on his right side. Percussion notes are full to the diaphragm. CARDIAC: Without murmurs, clicks, gallops, or rubs. I cannot feel his PMI. S1 and S2 are normal. ABDOMEN: Soft and nontender. Bowel sounds are positive. There is no hepatomegaly. No CVA tenderness. EXTREMITIES: Show no pretibial edema. No calf tenderness. No differential swelling of the upper extremities. SKIN: Warm, dry, and perfused without cyanosis or mottling, including that of the nail beds and knees. NECK: Supple. There is no jugular venous distention. No subcutaneous emphysema. Trachea is midline. MOUTH: Shows the mucous membranes to be pink and moist. Lips and gums without lesions and no thrush. EYES: Show his pupils equal and reactive. Extraocular movements are intact. Sclerae nonicteric. NEUROLOGIC: Shows II through XII intact. Normal gross motor, gross sensation intact. Gait is not tested. PSYCHIATRIC: Shows him to be awake, alert, and oriented x3 with appropriate mood and affect and conversational. LABORATORY DATA: His white count today is 9.9 with hemoglobin and hematocrit of 14.8 and 45.0. Platelet count is 242,000 and differential shows 64% neutrophils, 26% lymphocytes, and 7% monocytes. There are no immature forms and no toxic granulations. His chemistries show normal electrolytes with a BUN and creatinine of 11 and 0.93, glucose of 95, and a calcium of 8.6. He remains on Toradol. Blood gases this morning show a pH of 7.39, pCO2 of 38, and a pO2 of 158 on 1 liter nasal cannula with a base excess of -1.1. IMAGING STUDIES: His chest x-ray today shows his lungs fully expand to the chest wall. Mediastinum is back to the midline. There is no subcutaneous emphysema. Chest CT done today shows the same extensive bolus disease as he had two years ago. It is particularly notable in the right upper lobe and it is probably where his pneumothorax emanated from. He has some compression atelectasis in the right lower lobe. I see no masses. Along with the bullous disease, he has diffuse emphysematous changes particularly in the upper lobes. IMPRESSION: 1. Spontaneous pneumothorax third recurrence. 2. Chronic obstructive pulmonary disease (COPD). 3. Emphysematous bullous disease. 4. Hypercholesterolemia. 5. Tobacco abuse. PLAN AND DISCUSSION: I will schedule him for the OR for Saturday for a wedge resection and talc pleurodesis to be done thoracoscopically. The patient understands the procedures and is willing to proceed.
--- NOTE | 2020-08-16 08:39 | REP ---
INDICATION: pnthx, after Chest tube placement COMPARISON: 08/15/2020 TECHNIQUE: PA and lateral. FINDINGS: Chest tube extending into the right apex is unchanged in position and small residual right pneumothorax is unchanged. Aerated lung newton are relatively clear bilaterally and without new areas of opacity. Mediastinum and cardiac silhouette are normal. Skeletal structures intact. IMPRESSION: No significant change from prior examination with small residual right pneumothorax again noted. <Electronically signed by Esau Rich > 08/16/20 [id number]
[2020-08-16] MEDS: NICOTINE 21MG/24HR 1 EA TRANSDERMAL TD SCH (08:45)
[2020-08-16] MEDS: PANTOPRAZOLE 40MG TAB (PROTONIX) PO SCH (08:46)
[2020-08-16] MEDS: ATORVASTATIN 20 MG TAB PO SCH (08:46)
[2020-08-16] MEDS: DOCUSATE SODIUM 100MG CAPSULE PO SCH ×2 (08:46→20:00)
[2020-08-16] MEDS: HEPARIN SOD (PORCINE) 5000UNITS/ML 1ML VIAL/SYRINGE SC SCH ×2 (08:47→20:00)
[2020-08-16] MEDS: MOM 30ML SUSPENSION UDC PO SCH (09:00)
--- NOTE | 2020-08-16 11:32 | IPNPDOC ---
Text Note Date of Service The patient was seen on 08/16/20. NOTE Subjective: Patient is a 40-year-old male who presents with spontaneous pneumothorax managed by cardiothoracic surgery with a chest tube. He presented to the emergency room from home on August 14 with sharp right upper chest pain. The patient immediately recognized the symptoms consistent with a pneumothorax due to his history of 2 spontaneous pneumothoraces in 2011 in 2013. He has an extensive unfiltered cigarette smoking history. Nursing staff and patient report no overnight events. Cardiothoracic surgery plans to perform a talc pleurodesis and wedge resection of the bullae found on CT scan done on 12/29/2019 for chest pain showing extensive bullous emphysematous disease in bilateral lungs. Patient states that he had no overnight complaints and has been eating well. Pt has not had a bowel movement since admission despite Colace. RN states that pt declined Milk of Magnesia yesterday but will attempt giving it to patient today. Objective: General: Pleasant, NAD HEENT: NC, AT. EOMI, no scleral icterus. CV: RRR, Normal S1 and S2. No murmurs, gallops, or rubs. Resp: CTAB with full breath sounds. No wheezes, crackles, or rhonchi. No dullness to percussion. Abdomen: Bowel sounds present. Soft, NT, ND. Extremities: No swelling or edema. Assessment/Plan: #Pneumothorax Cardiothoracic surgery is following. Patient to have a pleurodesis and wedge resection on Saturday morning, cardiothoracic surgery input is greatly valued. [place], Percocet, and Toradol being administered for pain at this time. Patient is receiving IV cefazolin for preop antibacterial coverage. EKG completed and results show NSR with no change compared to EKG on 12/31/2019. #COPD Continue levalbuterol 1.25 mg nebulized solution every 6 hours. #Hyperlipidemia Continue atorvastatin 20 mg daily. GI prophylaxis: Protonix 40 mg daily DVT prophylaxis: Teds and sequentials. VS,Fishbone, I+O VS, Fishbone, I+O Laboratory Tests 08/16/20 04:39 Vital Signs Date Time Temp Pulse Resp B/P (MAP) Pulse Ox O2 Delivery O2 Flow Rate FiO2 08/16/20 07:21 97.3 75 19 117/64 (81) 96 08/16/20 00:00 Room Air 08/14/20 20:00 08/14/20 14:01 96 I&O- Last 24 Hours up to 6 AM 08/16/20 06:00 Intake Total 980 ml Output Total 2471 ml Balance -1491 ml GME ATTESTATION GME ATTESTATION My faculty preceptor for this patient encounter was physically present during the encounter and was fully available. All aspects of the patient interview, examination, medical decision making process, and medical care plan development were reviewed and approved by the faculty preceptor. The faculty preceptor is aware and concurs with the plan as stated in the body of this note and will attest to such by his/her cosignature. ATTENDING NOTE I, Kyle Sutton MD, have independently examined this patient and performed my own physical exam, as well as reviewed the documentation and edited where necessary. I have discussed in detail with the resident / student the findings and plan of treatment as documented by the resident / student and edited their note. I agree with their findings and treatment plan and have edited their documentation. Sheri RUTH OMS-3 Aug 16, 2020 10:47 Jaleel Trent DO Aug 16, 2020 11:32 KYLE SUTTON MD Aug 19, 2020 14:51
--- NOTE | 2020-08-16 11:48 | IPN ---
PROGRESS NOTE DATE: 08/16/2020 SUBJECTIVE: Mr. Bautista's pain is well under control. He is breathing well. There is no air leak from the chest tube. OBJECTIVE: VITAL SIGNS: Show a T-max of 97.9 with a heart rate that ranges between 67 and 75 in sinus rhythm. Respiratory rate of 18-19 without the use of accessory muscles. He was 95% to 99% saturated on room air. Blood pressure is ranging between 117/64 to 103/64. INTAKE AND OUTPUT: Over the past 24 hours has been recorded as 980 in and 2911 out for a negativity of 1900 mL. He has put 1100 mL out the chest tube. His weight today is 65.6 kg compared to 65.9 kg yesterday. RESPIRATORY: His lungs show equal breath sounds on either side. He has normal vesicular sounds without wheezes, rhonchi, or rales. Percussion notes are full to the diaphragm. There is no subcutaneous emphysema. CARDIAC: Without murmurs, clicks, gallops, or rubs. I cannot feel his PMI. S1 and S2 are normal. ABDOMEN: Soft and nontender. Bowel sounds are positive. There is no hepatomegaly. No CVA tenderness. EXTREMITIES: Show no pretibial edema. No calf tenderness. No differential swelling of the upper extremities. SKIN: Warm, dry, and perfused without cyanosis or mottling, including that of the nail beds and knees. NECK: Supple. There is no jugular venous distention. No subcutaneous emphysema. Trachea is midline. MOUTH: Shows the mucous membranes to be pink and moist. Lips and commisures are without lesions and no thrush. EYES: Show his pupils equal and reactive. Extraocular movements are intact. Sclerae nonicteric. NEUROLOGIC: Shows II through XII intact. Normal gross motor, gross sensation intact. Gait is not tested. PSYCHIATRIC: Shows him to be awake, alert, and oriented x3 with appropriate mood and affect and conversational. LABORATORY DATA: His white count today is 9.1 with a hemoglobin and hematocrit of 14.6 and 45.3. Platelet count is 259,000 and stable. Differential shows 64% neutrophils, 24% lymphocytes, and 8% monocytes. There are no immature forms and no toxic granulations. His electrolytes are normal with a BUN and creatinine of 12 and 1.06 with a glucose of 90 and a calcium of 8.6. He remains on Toradol. IMAGING DATA: Chest x-ray shows his lungs full expand to the chest wall. There are no infiltrates and chest tube is in good place. IMPRESSION: 1. Spontaneous pneumothorax x3 right side. 2. Chronic obstructive pulmonary disease (COPD). 3. Emphysematous bullous disease. 4. Hypercholesterolemia. 5. Tobacco abuse. PLAN AND DISCUSSION: I will take him to the operating room tomorrow where we will undertake a talc pleurodesis and a wedge resection of his bulla. He is fully informed of the risks and benefits of the procedure and is willing to proceed.
[2020-08-16 12:00] VITALS: BP 122/74
[2020-08-16 16:00] VITALS: BP 110/57
[2020-08-16 20:00] VITALS: BP 118/72
[2020-08-17] VITALS (9 sets, daily range): BP systolic 107–137; BP diastolic 61–79
[2020-08-17] MEDS: LEVALBUTEROL 1.25 MG/0.5 ML CONCENTRATE NEB NEB SCH ×4 (02:00→20:40)
[2020-08-17] MEDS: KETOROLAC 30 MG/ML 1ML VIAL IV SCH ×4 (02:04→21:00)
[2020-08-17 04:34] LABS: BASO % 0.5 % (0.0-1.0); EOS # 0.2 10^3/uL (0.0-0.5); EOS % 1.8 % (0.0-3.0); HEMATOCRIT 45.2 % (42.0-52.0); HEMOGLOBIN 14.4 g/dl (13.5-17.5); LYMPH # 2.4 10^3/uL (1.5-5.0); LYMPH % 27.1 % (24.0-44.0); MEAN CORPUSCULAR HEMOGLOBIN 29.6 pg (27.0-33.0); MEAN CORPUSCULAR HGB CONC 31.9 g/dl (32.0-36.5); MEAN CORPUSCULAR VOLUME 92.8 fl (80.0-96.0); MONO # 0.7 10^3/uL (0.0-0.8); MONO % 8.2 % (2.0-8.0); NEUTROPHILS # 5.5 10^3/uL (1.5-8.5); NEUTROPHILS % 61.9 % (36.0-66.0); PLATELET COUNT, AUTOMATED 259 10^3/uL (150-450); RED BLOOD COUNT 4.87 10^6/uL (4.30-6.10); WHITE BLOOD COUNT 8.8 10^3/uL (4.0-10.0)
[2020-08-17 04:56] LABS: BLOOD UREA NITROGEN 14 MG/DL (7-18); CARBON DIOXIDE LEVEL 26 MEQ/L (21-32); CHLORIDE LEVEL 108 MEQ/L (98-107); GLOMERULAR FILTRATION RATE > 60.0 (>60); GLUCOSE, FASTING 97 MG/DL (70-100); POTASSIUM SERUM 4.6 MEQ/L (3.5-5.1); SODIUM LEVEL 140 MEQ/L (136-145)
[2020-08-17] MEDS: SLF 3 ML SYR IV SCH ×3 (05:27→22:12)
[2020-08-17] MEDS ORDERED: ceFAZolin SOD 2 GM in IV 1 EA IV ONE (06:00)
[2020-08-17] MEDS ORDERED: MUPIROCIN 2% OINT 22 GM TUBE TOP ONE (06:00)
--- NOTE | 2020-08-17 07:53 | REP ---
INDICATION: pnthx, after Chest tube placement COMPARISON: 08/16/2020 TECHNIQUE: PA and lateral. FINDINGS: Right-sided chest tube extends to the apex with small residual stable pneumothorax. Aerated lung newton are otherwise relatively clear and stable. Mediastinum and cardiac silhouette within normal limits. Skeletal structures intact. IMPRESSION: No significant change from prior examination. Small residual right apical pneumothorax again noted. <Electronically signed by Esau Rich > 08/17/20 [id number]
[2020-08-17] MEDS ORDERED: BUPIVACAINE HCL 0.25% 30ML VIAL As Ordered ONE (08:06)
[2020-08-17] MEDS: HEPARIN SOD (PORCINE) 5000UNITS/ML 1ML VIAL/SYRINGE SC SCH ×2 (08:36→22:11)
[2020-08-17] MEDS: PANTOPRAZOLE 40MG TAB (PROTONIX) PO SCH (08:47)
[2020-08-17] MEDS: DOCUSATE SODIUM 100MG CAPSULE PO SCH ×2 (08:47→21:00)
[2020-08-17] MEDS: MOM 30ML SUSPENSION UDC PO SCH (08:47)
[2020-08-17] MEDS: ATORVASTATIN 20 MG TAB PO SCH (08:47)
[2020-08-17] MEDS: NICOTINE 21MG/24HR 1 EA TRANSDERMAL TD SCH (08:47)
[2020-08-17] MEDS ORDERED: MUPIROCIN 2% OINT 22 GM TUBE As Ordered ONE (10:39)
[2020-08-17] MEDS ORDERED: CETACAINE SPRAY 5GM As Ordered ONE (10:39)
[2020-08-17] MEDS ORDERED: STERILE TALC POWDER 3GM VIAL As Ordered ONE (10:39)
[2020-08-17] MEDS ORDERED: BUPIVACAINE LIPOSOME/PF 1.3% 20ML VIAL (13.3MG/ML)(EXPAREL)(C9290 PER1MG) As Ordered ONE (10:39)
[2020-08-17] MEDS ORDERED: BUPIVACAINE HCL 0.5% 10ML VIAL As Ordered ONE (10:39)
[2020-08-17] MEDS ORDERED: TALCAIR POWDER BLOWER (CAN ONLY BE USED WITH 3GM TALC VIAL) XX ONE (10:40)
--- NOTE | 2020-08-17 10:44 | IPNPDOC ---
Text Note Date of Service The patient was seen on 08/17/20. NOTE Subjective: Patient is a 40-year-old male who presents with spontaneous pneumothorax managed by cardiothoracic surgery with a chest tube. He presented to the emergency room from home on August 14 with sharp right upper chest pain. The patient immediately recognized the symptoms consistent with a pneumothorax due to his history of 2 spontaneous pneumothoraces in 2011 in 2013. He has an extensive unfiltered cigarette smoking history. Nursing staff and patient report no overnight events. Cardiothoracic surgery plans to perform a talc pleurodesis and wedge resection of the bullae found on CT scan done on 12/29/2019 for chest pain showing extensive bullous emphysematous disease in bilateral lungs. Patient complains of a dull, achy low back pain that started a couple of days ago. He attributes it to feeling "tense" due to his upcoming surgery. Patient also reports having a little SOB yesterday that has since resolved. He has not had a bowel movement since admission despite Colace. He has been NPO since yesterday due to plans for talc pleurodesis and wedge resection today at 13:00. Objective: General: Pleasant, NAD HEENT: NC, AT. EOMI, no scleral icterus. CV: RRR, Normal S1 and S2. No murmurs, gallops, or rubs. Resp: CTAB with full breath sounds. No wheezes, crackles, or rhonchi. No dullness to percussion. Abdomen: Bowel sounds present. Soft, NT, ND. Extremities: No swelling or edema. Assessment/Plan: #Pneumothorax Cardiothoracic surgery is following. Patient to have a pleurodesis and wedge resection today at 13:00 and was given preoperative Cefazolin today, cardiothoracic surgery input is greatly valued. [place], Percocet, and Toradol being administered for pain at this time. Patient is receiving IV cefazolin for preop antibacterial coverage. EKG completed and results show NSR with no change compared to EKG on 12/31/2019. #COPD Continue levalbuterol 1.25 mg nebulized solution every 6 hours. #Hyperlipidemia Continue atorvastatin 20 mg daily. GI prophylaxis: Protonix 40 mg daily DVT prophylaxis: Teds and sequentials. VS,Fishbone, I+O VS, Fishbone, I+O Laboratory Tests 08/17/20 04:06 Vital Signs Date Time Temp Pulse Resp B/P (MAP) Pulse Ox O2 Delivery O2 Flow Rate FiO2 08/17/20 08:00 97.6 70 18 115/65 (82) 97 Room Air 08/14/20 20:00 08/14/20 14:01 96 I&O- Last 24 Hours up to 6 AM 08/17/20 06:00 Intake Total 1160 ml Output Total 2437 ml Balance -1277 ml GME ATTESTATION GME ATTESTATION My faculty preceptor for this patient encounter was physically present during the encounter and was fully available. All aspects of the patient interview, examination, medical decision making process, and medical care plan development were reviewed and approved by the faculty preceptor. The faculty preceptor is aware and concurs with the plan as stated in the body of this note and will attest to such by his/her cosignature. ATTENDING NOTE I, Kyle Sutton MD, have independently examined this patient and performed my own physical exam, as well as reviewed the documentation and edited where necessary. I have discussed in detail with the resident / student the findings and plan of treatment as documented by the resident / student and edited their note. I agree with their findings and treatment plan and have edited their documentation. Sheri RUTH OMS-3 Aug 17, 2020 10:44 KYLE SUTTON MD Aug 19, 2020 14:51
[2020-08-17] MEDS ORDERED: MIDAZOLAM INJ 2MG/2ML VIAL (J2250 PER 1MG) As Ordered ONE ×2 (11:53→14:00)
[2020-08-17] MEDS ORDERED: fentaNYL 250 MCG/5 ML INJECTION (J3010) As Ordered ONE (11:53)
[2020-08-17] MEDS ORDERED: dexameTHASONE 4 MG/ML 1ML VIAL (J1100 PER 1MG) As Ordered ONE (11:54)
[2020-08-17] MEDS ORDERED: LIDOCAINE 2% 100MG/5ML SDV (FOR ANES.) As Ordered ONE (11:54)
[2020-08-17] MEDS ORDERED: ROCURONIUM BROMIDE 50 MG/5 ML VIAL As Ordered ONE ×2 (11:54→15:17)
[2020-08-17] MEDS ORDERED: propofoL 200 MG/20 ML VIAL As Ordered ONE (11:54)
[2020-08-17] MEDS ORDERED: SUGAMMADEX SODIUM 500 MG/5 ML VIAL (BRIDION) As Ordered ONE (11:54)
[2020-08-17] MEDS ORDERED: ONDANSETRON 4MG/2ML VIAL As Ordered ONE (11:54)
[2020-08-17] MEDS ORDERED: fentaNYL 100 MCG/2 ML INJECTION (J3010) As Ordered ONE ×2 (14:00→17:39)
[2020-08-17] MEDS ORDERED: MIDAZOLAM INJ 2MG/2ML VIAL (J2250 PER 1MG) IV ONE (14:25)
[2020-08-17] MEDS ORDERED: fentaNYL 100 MCG/2 ML INJECTION (J3010) IV ONE (14:25)
[2020-08-17] MEDS ORDERED: ceFAZolin 2 GM/D5W 50 ML IV BAG (J0690 PER 500MG) As Ordered ONE (14:43)
[2020-08-17] MEDS ORDERED: D5W/0.9% SODIUM CHLORIDE 1,000 ML IV SCH (16:46)
[2020-08-17] MEDS ORDERED: KCL 20MEQ IN D5/NS 1000ML 1,000 ML IV SCH (16:46)
[2020-08-17] MEDS ORDERED: FENTANYL 2MCG/ML BUPIVACAINE 0.0625% NACL 250ML IV BAG As Ordered ONE (17:00)
--- NOTE | 2020-08-17 17:28 | REP ---
INDICATION: Pneumothorax. COMPARISON: 08/17/2020, 7:26 a.m.. TECHNIQUE: SINGLE PORTABLE AP VIEW OF THE CHEST WAS PERFORMED. FINDINGS: The right pneumothorax has significantly increased. The air gap at the apex is approximately 8 cm. There 2 right chest tubes overlying the right hemithorax. There is partial collapse of the right lung. The left lung is unremarkable and unchanged. Heart mediastinum are unremarkable and unchanged. IMPRESSION: Significant increase in size of right pneumothorax. Two right chest tubes. <Electronically signed by Juan Dickinson > 08/17/20 [id number]
[2020-08-17 17:40] LABS: ABG BASE EXCESS -0.6 (-2.0-2.0); ABG HCO3 25.4 MEQ/L (22.0-26.0); ABG O2 SATURATION 92.3 % (95.0-99.0); ABG PARTIAL PRESSURE CO2 46.8 mmHg (35.0-45.0); ABG PARTIAL PRESSURE O2 64.3 mmHg (75.0-100.0); ABG STANDARD HCO3 23.8 MEQ/L (22.0-26.0); ABG TOTAL CO2 26.9 MEQ/L (22.0-29.0); ABG pH (ARTERIAL) 7.353 UNITS (7.350-7.450)
[2020-08-17 17:43] LABS: BASO # 0.1 10^3/uL (0.0-0.2); BASO % 0.4 % (0.0-1.0); EOS # 0.1 10^3/uL (0.0-0.5); HEMATOCRIT 45.8 % (42.0-52.0); LYMPH # 1.4 10^3/uL (1.5-5.0); LYMPH % 10.8 % (24.0-44.0); MEAN CORPUSCULAR HEMOGLOBIN 30.4 pg (27.0-33.0); MEAN CORPUSCULAR HGB CONC 32.8 g/dl (32.0-36.5); MEAN CORPUSCULAR VOLUME 92.9 fl (80.0-96.0); MONO # 0.3 10^3/uL (0.0-0.8); MONO % 2.2 % (2.0-8.0); NEUTROPHILS % 85.1 % (36.0-66.0); PLATELET COUNT, AUTOMATED 260 10^3/uL (150-450); RED BLOOD COUNT 4.93 10^6/uL (4.30-6.10)
[2020-08-17] MEDS ORDERED: oxyCODONE 5MG TAB PO PRN (18:00)
[2020-08-17] MEDS ORDERED: LR 1,000 ML IV SCH (18:00)
[2020-08-17] MEDS ORDERED: fentaNYL 100 MCG/2 ML INJECTION (J3010) IV PRN (18:00)
[2020-08-17] MEDS ORDERED: ONDANSETRON 4MG/2ML VIAL IV PRN ×2 (18:00→19:20)
[2020-08-17 18:05] LABS: BLOOD UREA NITROGEN 15 MG/DL (7-18); CALCIUM LEVEL 9.1 MG/DL (8.5-10.1); CARBON DIOXIDE LEVEL 27 MEQ/L (21-32); CHLORIDE LEVEL 107 MEQ/L (98-107); CREATININE FOR GFR 0.91 MG/DL (0.70-1.30); GLOMERULAR FILTRATION RATE > 60.0 (>60); GLUCOSE, FASTING 100 MG/DL (70-100); POTASSIUM SERUM 4.4 MEQ/L (3.5-5.1); SODIUM LEVEL 139 MEQ/L (136-145)
--- NOTE | 2020-08-17 18:32 | REP ---
INDICATION: pnththx. COMPARISON: 08/17/2020, 5:10 p.m.. TECHNIQUE: SINGLE PORTABLE AP VIEW OF THE CHEST WAS PERFORMED. FINDINGS: Fairly large right pneumothorax is unchanged. Two right chest tubes again overlie the right hemithorax. The remainder of the study is unchanged. IMPRESSION: Right pneumothorax unchanged. <Electronically signed by Juan Dickinson > 08/17/20 [id number]
[2020-08-17] MEDS ORDERED: METOCLOPRAMIDE INJ 10MG/2ML VIAL (J2765 PER 1) IV PRN (19:20)
[2020-08-17] MEDS ORDERED: NALOXONE INJ 0.4MG/1ML VIAL (J2310 PER 1MG) IV PRN (19:20)
[2020-08-17] MEDS ORDERED: WALLBOXKEY XX PRN (19:20)
[2020-08-17] MEDS ORDERED: EPIDURAL/PCA KEYS XX PRN (19:20)
[2020-08-17] MEDS ORDERED: diphenhydrAMINE 50MG/ML VIAL (J1200) IV PRN (19:20)
--- NOTE | 2020-08-17 19:29 | REP ---
INDICATION: pnthx. COMPARISON: 08/17/2020, 6:16 p.m.. TECHNIQUE: SINGLE PORTABLE AP VIEW OF THE CHEST WAS PERFORMED. FINDINGS: The right pneumothorax has significantly decreased in size. A small residual right pneumothorax is present. The air gap at the apex is approximately 2.4 cm. Two right chest tubes are again noted. Mild scattered atelectatic changes are seen of the right lung. The remainder of the study is unchanged. IMPRESSION: Significant decrease in size of right pneumothorax, with small residual. Two right chest tubes remain in place. <Electronically signed by Juan Dickinson > 08/17/201925
[2020-08-17] MEDS: ceFAZolin SOD 1 GM in D5W MINI-BAG PLUS 50 ML IV SCH (22:11)
[2020-08-18] VITALS (12 sets, daily range): BP systolic 99–120; BP diastolic 54–68
[2020-08-18] MEDS: LEVALBUTEROL 1.25 MG/0.5 ML CONCENTRATE NEB NEB SCH ×4 (01:35→20:00)
[2020-08-18] MEDS: KETOROLAC 30 MG/ML 1ML VIAL IV SCH ×4 (01:49→20:19)
[2020-08-18 05:20] LABS: BLOOD UREA NITROGEN 13 MG/DL (7-18); CALCIUM LEVEL 8.8 MG/DL (8.5-10.1); CARBON DIOXIDE LEVEL 29 MEQ/L (21-32); CHLORIDE LEVEL 106 MEQ/L (98-107); CREATININE FOR GFR 0.94 MG/DL (0.70-1.30); GLOMERULAR FILTRATION RATE > 60.0 (>60); GLUCOSE, FASTING 123 MG/DL (70-100); POTASSIUM SERUM 4.7 MEQ/L (3.5-5.1); SODIUM LEVEL 137 MEQ/L (136-145)
[2020-08-18 05:28] LABS: BASO % 0.1 % (0.0-1.0); HEMATOCRIT 43.7 % (42.0-52.0); LYMPH # 0.9 10^3/uL (1.5-5.0); LYMPH % 5.4 % (24.0-44.0); MEAN CORPUSCULAR HEMOGLOBIN 29.9 pg (27.0-33.0); MEAN CORPUSCULAR VOLUME 93.4 fl (80.0-96.0); MONO # 0.9 10^3/uL (0.0-0.8); MONO % 5.1 % (2.0-8.0); NEUTROPHILS # 14.8 10^3/uL (1.5-8.5); NEUTROPHILS % 88.9 % (36.0-66.0); PLATELET COUNT, AUTOMATED 284 10^3/uL (150-450); RED BLOOD COUNT 4.68 10^6/uL (4.30-6.10); WHITE BLOOD COUNT 16.7 10^3/uL (4.0-10.0)
[2020-08-18 05:52] LABS: ABG BASE EXCESS -1.1 (-2.0-2.0); ABG HCO3 24.2 MEQ/L (22.0-26.0); ABG O2 SATURATION 99.3 % (95.0-99.0); ABG PARTIAL PRESSURE CO2 42.3 mmHg (35.0-45.0); ABG PARTIAL PRESSURE O2 145.1 mmHg (75.0-100.0); ABG STANDARD HCO3 23.6 MEQ/L (22.0-26.0); ABG TOTAL CO2 25.5 MEQ/L (22.0-29.0); ABG pH (ARTERIAL) 7.375 UNITS (7.350-7.450)
[2020-08-18] MEDS: SLF 3 ML SYR IV SCH ×3 (06:04→22:20)
[2020-08-18] MEDS: ceFAZolin SOD 1 GM in D5W MINI-BAG PLUS 50 ML IV SCH ×3 (06:04→23:46)
[2020-08-18] MEDS: MOM 30ML SUSPENSION UDC PO SCH (09:00)
--- NOTE | 2020-08-18 09:16 | REP ---
INDICATION: pnthx, after Chest tube placement COMPARISON: 08/17/2020 TECHNIQUE: PA and lateral. FINDINGS: Two right apical chest tubes are again identified in satisfactory position. Small residual right apical pneumothorax identified along with small amount of subcutaneous emphysema at the right base. Aerated lung newton are relatively clear and without obvious focal consolidation or effusion. No left pneumothorax. Mediastinum and cardiac silhouette normal. IMPRESSION: Small residual right apical pneumothorax and small amount of subcutaneous emphysema again noted. No new acute process appreciated. <Electronically signed by Esau Rich > 08/18/20 0902
[2020-08-18] MEDS: ATORVASTATIN 20 MG TAB PO SCH (09:34)
[2020-08-18] MEDS: PANTOPRAZOLE 40MG TAB (PROTONIX) PO SCH (09:34)
[2020-08-18] MEDS: NICOTINE 21MG/24HR 1 EA TRANSDERMAL TD SCH (09:39)
[2020-08-18] MEDS: HEPARIN SOD (PORCINE) 5000UNITS/ML 1ML VIAL/SYRINGE SC SCH ×2 (09:39→20:19)
[2020-08-18] MEDS: DOCUSATE SODIUM 100MG CAPSULE PO SCH ×2 (09:41→20:19)
--- NOTE | 2020-08-18 10:17 | RO ---
OPERATIVE NOTE DATE OF OPERATION: 08/17/2020 PREOPERATIVE DIAGNOSIS: Recurrent pneumothorax times three. POSTOPERATIVE DIAGNOSIS: Recurrent pneumothorax times three with emphysematous bullous disease. PROCEDURE: Right upper lobe wedge resection, bullectomy, talc pleurodesis, 5-level rib block, and bronchoscopy, all with video-assisted thorascopic surgery (VATS) techniques. SURGEON: Dr. Tono Cheung FINDINGS: The right upper lobe showed extensive bullae. Pictures were taken. There was one that was seen to be flapping and was probably the ruptured bullae causing the pneumothorax. The chest was pleurodesed homogeneously with talc. Bronchoscopy showed a normal branching tracheobronchial tree without endobronchial lesions and scant secretions. DESCRIPTION OF PROCEDURE: Under satisfactory single-lumen tube endotracheal intubation, bronchoscope was passed into tracheobronchial tree. Each segment and subsegment were thoroughly inspected, and there were no endobronchial lesions. The patient then underwent double-lumen endotracheal intubation with position confirmed by bronchoscopy. Patient was then turned into the left lateral decubitus position and sterilely prepped and draped in the usual fashion. A VATS thoracoscopy incision was made in the mid axillary line in and around the 6th intercostal space. A 5 mm scope was placed, and the above findings were noted. Two additional ports were then placed, and the lung was manipulated in order to completely visualize the pathology. A 12 mm port was placed in the posterior incision. The lung was seized with a grasper, elevated, and the bullae were completely wedged off and excised. There were two areas of bulla which were excised. The chest was then insufflated homogeneously with talc. Pictures again were taken. A 5-level rib block consisting of Marcaine and Exparel was then instilled. Two chest tubes were placed, a right angle posterior and a straight anterior, both #24. The remaining VATS incision was closed with running 0 Vicryl suture for the extrathoracic muscles, running 3-0 Vicryl suture for the subcutaneous tissue, and running 4-0 Monopril subcuticular suture for the skin. Patient tolerated the procedure well and left the operating room in satisfactory condition to the recovery room.
--- NOTE | 2020-08-18 11:17 | IPNPDOC ---
Text Note Date of Service The patient was seen on 08/18/20. NOTE Subjective: Patient is a 40-year-old male who presents with spontaneous pneumothorax managed by cardiothoracic surgery with a chest tube. He presented to the emergency room from home on August 14 with sharp right upper chest pain. The patient immediately recognized the symptoms consistent with a pneumothorax due to his history of 2 spontaneous pneumothoraces in 2011 in 2013. He has an extensive unfiltered cigarette smoking history. Nursing staff and patient report no overnight events. Cardiothoracic surgery performed a talc pleurodesis and wedge resection of the bullae found on CT scan done on 12/29/2019 for chest pain showing extensive bullous emphysematous disease in bilateral lungs. Patient had breakfast this morning and denies nausea and vomiting. He has not had a bowel movement since admission despite Colace, but reports that this is normal for him as he can go weeks without a bowel movement at home with larger meals. His meals have been smaller since admission and he had been nothing by mouth for a couple days. Nursing staff reports that Dr. Cheung will be in to evaluate the patient for crepitus and possible air leak of the chest tube. Objective: General: Pleasant, NAD HEENT: NC, AT. EOMI, no scleral icterus. CV: RRR, Normal S1 and S2. No murmurs, gallops, or rubs. Resp: CTAB with full breath sounds. , Some crepitus appreciated with inhalation in the right upper lung region. No wheezes, crackles, or rhonchi. No dullness to percussion. Abdomen: Bowel sounds present. Soft, NT, ND. Extremities: No swelling or edema. Assessment/Plan: #Pneumothorax Cardiothoracic surgery is following. Patient to had pleurodesis and wedge resection on 08/17/2020 and is on Cefazolin today, cardiothoracic surgery input is greatly valued. [place], Percocet, and Toradol being administered for pain at this time. Patient is receiving IV cefazolin for preop antibacterial coverage. EKG completed and results show NSR with no change compared to EKG on 12/31/2019. Cardiothoracic surgery following patient for possible chest tube air leak at this time. #COPD Continue levalbuterol 1.25 mg nebulized solution every 6 hours. #Hyperlipidemia Continue atorvastatin 20 mg daily. GI prophylaxis: Protonix 40 mg daily DVT prophylaxis: Heparin 5000 units subcutaneous twice a day. Teds and sequen tials. VS,Fishbone, I+O VS, Fishbone, I+O Laboratory Tests 08/17/20 16:46 08/17/20 17:00 08/18/20 04:40 Vital Signs Date Time Temp Pulse Resp B/P (MAP) Pulse Ox O2 Delivery O2 Flow Rate FiO2 08/18/20 08:00 98.6 84 20 104/56 (72) 97 Room Air 08/18/20 06:00 2.0 08/17/20 17:35 100 I&O- Last 24 Hours up to 6 AM 08/18/20 06:00 Intake Total 1519 ml Output Total 2815 ml Balance -1296 ml GME ATTESTATION GME ATTESTATION My faculty preceptor for this patient encounter was physically present during the encounter and was fully available. All aspects of the patient interview, examination, medical decision making process, and medical care plan development were reviewed and approved by the faculty preceptor. The faculty preceptor is aware and concurs with the plan as stated in the body of this note and will attest to such by his/her cosignature. ATTENDING NOTE I, Kyle Roper MD, have independently examined this patient and performed my own physical exam, as well as reviewed the documentation and edited where necessary. I have discussed in detail with the resident / student the findings and plan of treatment as documented by the resident / student and edited their note. I agree with their findings and treatment plan and have edited their documentation. Jaleel Trent DO Aug 18, 2020 11:12 KYLE ROPER MD Aug 19, 2020 14:52
--- NOTE | 2020-08-18 12:53 | IPN ---
PROGRESS NOTE DATE: 08/18/2020 This is now the first postoperative day for Mr. Bautista, who has had a stable night of surgery. Just after surgery in the recovery room, chest x-ray revealed the lung was not expanded to the chest wall and had near 50% pneumothorax. Suction was turned up, and repeat x-ray showed the same. The Pleur-evac was finally changed and the lung re-expanded. It was clearly a mechanical issue with a defective Pleur-evac. His pain is being well controlled with the epidural. His vital signs show a maximum temperature of 98.6 with a heart rate that ranges between 75-80 in a sinus rhythm, respiratory rate of 18-20 without the use of accessory muscles, who is 97%-99% saturated on 2 liters nasal cannula. His blood pressure is ranging between 99/58 to 104/57. His intake and output for the past 24 hours has been recorded as 848 in and 2483 out, for a negativity of 1600 mL. He has put out 78 mL from the chest tube, and there is a small air leak. Weight today is 79.5 kg compared to 65.6 kg preoperatively. PHYSICAL EXAMINATION: He has equal breath sounds on either side. There are some crackles on the right side. I do not yet hear a pleural friction rub. Percussion note is full to the diaphragm. Cardiac exam is without murmurs, clicks, gallops, or rubs. I cannot feel his point of maximal impulse (PMI). S1 and S2 are normal. Abdomen is soft and nontender. Bowel sounds are positive. There is no hepatomegaly. No costovertebral angle (CVA) tenderness. Extremities show no pretibial edema, no calf tenderness, no differential swelling of the upper extremities. Skin is warm, dry, and perfused without cyanosis or mottling, including that of the nailbeds and knees. Neck is supple. There is no jugular venous distention. No subcutaneous emphysema. Trachea is midline. Mouth shows the mucous membranes to be pink and moist. Lips and commissures without lesions. No thrush. Eyes show his pupils to be equal and reactive. Extraocular motion intact. Sclerae anicteric. Neurologic shows II-XII intact. Normal gross motor, gross sensation intact. Gait is not tested. Psychiatric shows him to be awake, alert, and oriented times three with appropriate mood and affect and conversational. His white count today is 16.7 with a hemoglobin and hematocrit of 14.0 and 43.7, respectively. Platelet count is 284 and stable. Differential shows 88% neutrophils, 5% lymphocytes, and 5% monocytes. There are no immature forms or toxic granulations. Electrolytes are normal with a BUN and creatinine of 13 and 0.94, a glucose of 123 and calcium 8.8. His chest x-ray shows his lung fully expanded to the chest wall with a small apical airspace on the right side. Costophrenic angles are sharp. Chest tubes are in good place, and there are no infiltrates. IMPRESSION: 1. Postoperative day #1 status post wedge resection, right upper lobe bullectomy, and talc pleurodesis. 2. Recurrent spontaneous pneumothorax, right side times three. 3. Chronic obstructive pulmonary disease (COPD). 4. Emphysematous bullous disease. 5. Hypercholesterolemia. 6. Tobacco abuse. PLAN AND DISCUSSION: He is doing well today, and I will therefore transfer him to the progressive care unit (PCU). I will reduce his suction to -20. I will also reduce his epidural, as he is having no pain, down to 8. He did feel a bit dizzy when ambulating today, which I suspect is secondary to the epidural. We will continue the Barrios catheter.
[2020-08-18] MEDS: FENTANYL/BUPIVACAINE/NACL BAG 250 ML EPIDURAL SCH (16:50)
[2020-08-19] VITALS: BP 108/58
[2020-08-19] MEDS: KETOROLAC 30 MG/ML 1ML VIAL IV SCH ×2 (02:54→08:54)
[2020-08-19] MEDS: LEVALBUTEROL 1.25 MG/0.5 ML CONCENTRATE NEB NEB SCH ×4 (03:23→19:12)
[2020-08-19 04:00] VITALS: BP 113/66
[2020-08-19 04:00] LABS: BASO % 0.4 % (0.0-1.0); EOS # 0.2 10^3/uL (0.0-0.5); EOS % 1.4 % (0.0-3.0); HEMATOCRIT 40.8 % (42.0-52.0); HEMOGLOBIN 13.2 g/dl (13.5-17.5); LYMPH # 2.8 10^3/uL (1.5-5.0); LYMPH % 26.9 % (24.0-44.0); MEAN CORPUSCULAR HEMOGLOBIN 30.3 pg (27.0-33.0); MEAN CORPUSCULAR HGB CONC 32.4 g/dl (32.0-36.5); MEAN CORPUSCULAR VOLUME 93.6 fl (80.0-96.0); MONO % 9.3 % (2.0-8.0); NEUTROPHILS # 6.4 10^3/uL (1.5-8.5); NEUTROPHILS % 61.7 % (36.0-66.0); PLATELET COUNT, AUTOMATED 243 10^3/uL (150-450); RED BLOOD COUNT 4.36 10^6/uL (4.30-6.10); WHITE BLOOD COUNT 10.4 10^3/uL (4.0-10.0)
[2020-08-19 04:18] LABS: BLOOD UREA NITROGEN 15 MG/DL (7-18); CALCIUM LEVEL 7.8 MG/DL (8.5-10.1); CARBON DIOXIDE LEVEL 29 MEQ/L (21-32); CHLORIDE LEVEL 108 MEQ/L (98-107); GLOMERULAR FILTRATION RATE > 60.0 (>60); GLUCOSE, FASTING 110 MG/DL (70-100); POTASSIUM SERUM 3.9 MEQ/L (3.5-5.1); SODIUM LEVEL 139 MEQ/L (136-145)
[2020-08-19] MEDS: SLF 3 ML SYR IV SCH ×3 (05:20→20:41)
[2020-08-19] MEDS: ceFAZolin SOD 1 GM in D5W MINI-BAG PLUS 50 ML IV SCH ×2 (06:23→15:55)
[2020-08-19 08:00] VITALS: BP 148/73
--- NOTE | 2020-08-19 08:22 | REP ---
INDICATION: pnthx, after Chest tube placement COMPARISON: 08/18/2020 TECHNIQUE: PA and lateral. FINDINGS: Two right apical chest tubes are in stable position. Small residual right apical pneumothorax along with small amount of subcutaneous emphysema along the lower lateral chest wall at the site of insertion and mild right-sided pleuroparenchymal changes are essentially stable. Left hemithorax is well aerated and clear. No new acute process identified. Cardiac silhouette is normal. Skeletal structures are intact. IMPRESSION: No significant change from prior examination. <Electronically signed by Esau Rich > 08/19/20 0819
[2020-08-19] MEDS: ATORVASTATIN 20 MG TAB PO SCH (08:53)
[2020-08-19] MEDS: DOCUSATE SODIUM 100MG CAPSULE PO SCH ×2 (08:53→20:40)
[2020-08-19] MEDS: PANTOPRAZOLE 40MG TAB (PROTONIX) PO SCH (08:53)
[2020-08-19] MEDS: NICOTINE 21MG/24HR 1 EA TRANSDERMAL TD SCH (08:54)
[2020-08-19] MEDS: HEPARIN SOD (PORCINE) 5000UNITS/ML 1ML VIAL/SYRINGE SC SCH ×2 (08:55→20:40)
[2020-08-19] MEDS: MOM 30ML SUSPENSION UDC PO SCH ×2 (08:55→09:24)
--- NOTE | 2020-08-19 09:55 | IPNPDOC ---
Text Note Date of Service The patient was seen on 08/19/20. NOTE Subjective: Patient is a 40-year-old male who presents with spontaneous pneumothorax managed by cardiothoracic surgery with a chest tube. He presented to the emergency room from home on August 14 with sharp right upper chest pain. The patient immediately recognized the symptoms consistent with a pneumothorax due to his history of 2 spontaneous pneumothoraces in 2011 in 2013. He has an extensive unfiltered cigarette smoking history. Nursing staff and patient report no overnight events. Cardiothoracic surgery performed a talc pleurodesis and wedge resection of the bullae found on CT scan done on 12/29/2019 for chest pain showing extensive bullous emphysematous disease in bilateral lungs. Patient had breakfast this morning and denies nausea and vomiting. Pt has not had a BM since admission. He reports that he does feel like he needs to go but the cosby cath makes it difficult for him. Pt states that the cosby cath and epidural are bothering him and plans to discuss removal of both with Dr. Cheung today. Denies any chest pain/pressure, palpitations, or leg pain. Admits to lower back pain but attributes it to "sleeping wrong". Objective: General: Pleasant, NAD HEENT: NC, AT. EOMI, no scleral icterus. CV: RRR, Normal S1 and S2. No murmurs, gallops, or rubs. Resp: CTAB with full breath sounds. , Some crepitus appreciated with inhalation in the right upper lung region. No wheezes, crackles, or rhonchi. No dullness to percussion. Abdomen: Bowel sounds present. Soft, NT, ND. Extremities: No swelling or edema. Assessment/Plan: #Pneumothorax Cardiothoracic surgery is following. Patient to had pleurodesis and wedge resection on 08/17/2020 and is on Cefazolin today, cardiothoracic surgery input is greatly valued. Cushing, Percocet, and Toradol being administered for pain at this time. Patient is receiving IV cefazolin for preop antibacterial coverage. EKG completed and results show NSR with no change compared to EKG on 12/31/2019. Cardiothoracic surgery following patient for possible chest tube air leak at this time. -Patient will have cosby cath removed today. Will order post void bladder scan in 6 hrs and straight cath if bladder is distended. #COPD Continue levalbuterol 1.25 mg nebulized solution every 6 hours. #Hyperlipidemia Continue atorvastatin 20 mg daily. GI prophylaxis: Protonix 40 mg daily DVT prophylaxis: Heparin 5000 units subcutaneous twice a day. Teds and sequentials. VS,Fishbone, I+O VS, Fishbone, I+O Laboratory Tests 08/19/20 03:42 Vital Signs Date Time Temp Pulse Resp B/P (MAP) Pulse Ox O2 Delivery O2 Flow Rate FiO2 08/19/20 08:00 98.1 85 19 148/73 (98) 94 Room Air 08/18/20 06:00 2.0 08/17/20 17:35 100 I&O- Last 24 Hours up to 6 AM 08/19/20 06:00 Intake Total 2175 ml Output Total 3385 ml Balance -1210 ml GME ATTESTATION GME ATTESTATION My faculty preceptor for this patient encounter was physically present during the encounter and was fully available. All aspects of the patient interview, exa mination, medical decision making process, and medical care plan development were reviewed and approved by the faculty preceptor. The faculty preceptor is aware and concurs with the plan as stated in the body of this note and will attest to such by his/her cosignature. ATTENDING NOTE I, Kyle Roper MD, have independently examined this patient and performed my own physical exam, as well as reviewed the documentation and edited where necessary. I have discussed in detail with the resident / student the findings and plan of treatment as documented by the resident / student and edited their note. I agree with their findings and treatment plan and have edited their documentation. The patient is status post pleurodesis and volume reduction surgery because of his recurrent pneumothorax. The patient is doing well. Continues to be with epidural, which continues to be titrated down. He has been requesting his Cosby to be DC'd for which clamping was done this morning and the Cosby will be discontinued. Post void residual will be checked after 6 hours and if there is a residual of greater than 100 mL a straight cath will be done. Chest tube management as per CT surgery. He continues to be on DVT prophylaxis with 5000 twice a day of heparin. Disposition is unknown at this time Sheri RUTH OMS-3 Aug 19, 2020 09:55 KYLE ROPER MD Aug 19, 2020 14:54 Jaleel Trent DO Aug 19, 2020 15:52
[2020-08-19 12:00] VITALS: BP 120/17
[2020-08-19 16:00] VITALS: BP 127/74
--- NOTE | 2020-08-19 17:50 | IPN ---
PROGRESS NOTE DATE: 08/19/2020 This is now the second postoperative day for Mr. Bautista. His pain is being well controlled. There is no air leak. His vital signs show a maximum temperature of 98.4 with a heart rate that ranges between 71-85 in a sinus rhythm, respiratory rate of 18-19 without the use of accessory muscles, who is 94%-97% saturated now on room air and whose blood pressure is ranging between 148/73 to 108/58. His intake and output for the past 24 hours has been recorded as 2796 in and 3953 out, for a negativity of 1100 mL. He has put out 128 mL from the chest tube, and there is no air leak. Weight today is 66.7 kg compared to 79.5 kg yesterday. On physical examination, he has equal breath sounds on either side. Percussion notes are full to the diaphragm. I do not hear a pleural friction rub. Cardiac exam is without murmurs, clicks, gallops, or rubs. I cannot feel his point of maximal impulse (PMI). S1 and S2 are normal. Abdomen is soft and nontender. Bowel sounds are positive. There is no hepatomegaly. No costovertebral angle (CVA) tenderness. Extremities show no pretibial edema, no calf tenderness, no differential swelling of the upper extremities. Skin is warm, dry, and perfused without cyanosis or mottling, including that of the nailbeds and knees. Neck is supple. There is no jugular venous distention. No subcutaneous emphysema. Trachea is midline. Mouth shows the mucous membranes to be pink and moist. Lips and commissures without lesions. No thrush. Eyes show his pupils to be equal and reactive. Extraocular motion intact. Sclerae anicteric. Neurologic shows II-XII intact. Normal gross motor, gross sensation intact. Gait is not tested. Psychiatric shows him to be awake, alert, and oriented times three with appropriate mood and affect and conversational. His white count today is 10.4 with a hemoglobin and hematocrit of 13.2 and 40.8, respectively. Platelet count is 243 with a differential that shows 61% neutrophils, 26% lymphocytes, 9% monocytes. There are no immature forms or toxic granulations. His electrolytes are normal today with a BUN and creatinine of 15 and 0.90, a glucose of 110, and calcium 7.8. His chest x-ray shows his lung fully expanded to the chest wall with a very small apical airspace on the right side. There are no infiltrates. Costophrenic angles are sharp. IMPRESSION: 1. Postoperative day #2 status post right upper lobe wedge resection, bullectomy, and talc pleurodesis. 2. Recurrent spontaneous pneumothorax, right side, times three. 3. Chronic obstructive pulmonary disease (COPD). 4. Emphysematous bullous disease. 5. Hypercholesterolemia. 6. Tobacco abuse. PLAN AND DISCUSSION: I will continue him on suction today. He is asking for his Barrios to come out. I have weaned the epidural down to 6. He understands that if he cannot urinate after the Barrios comes out, the Barrios will need to go back in.
[2020-08-19] MEDS: FENTANYL/BUPIVACAINE/NACL BAG 250 ML EPIDURAL SCH (19:38)
[2020-08-19 20:00] VITALS: BP 139/82
[2020-08-20] VITALS (7 sets, daily range): BP systolic 104–167; BP diastolic 59–77
[2020-08-20] MEDS: LEVALBUTEROL 1.25 MG/0.5 ML CONCENTRATE NEB NEB SCH ×4 (02:00→20:49)
[2020-08-20 04:55] LABS: BASO # 0.1 10^3/uL (0.0-0.2); BASO % 0.8 % (0.0-1.0); EOS # 0.2 10^3/uL (0.0-0.5); EOS % 2.7 % (0.0-3.0); HEMATOCRIT 43.6 % (42.0-52.0); HEMOGLOBIN 14.2 g/dl (13.5-17.5); LYMPH # 2.3 10^3/uL (1.5-5.0); LYMPH % 25.3 % (24.0-44.0); MEAN CORPUSCULAR HEMOGLOBIN 30.3 pg (27.0-33.0); MEAN CORPUSCULAR HGB CONC 32.6 g/dl (32.0-36.5); MEAN CORPUSCULAR VOLUME 93.2 fl (80.0-96.0); MONO % 10.7 % (2.0-8.0); NEUTROPHILS # 5.4 10^3/uL (1.5-8.5); NEUTROPHILS % 59.9 % (36.0-66.0); PLATELET COUNT, AUTOMATED 262 10^3/uL (150-450); RED BLOOD COUNT 4.68 10^6/uL (4.30-6.10)
[2020-08-20 05:22] LABS: BLOOD UREA NITROGEN 11 MG/DL (7-18); CALCIUM LEVEL 9.2 MG/DL (8.5-10.1); CARBON DIOXIDE LEVEL 27 MEQ/L (21-32); CHLORIDE LEVEL 104 MEQ/L (98-107); CREATININE FOR GFR 0.86 MG/DL (0.70-1.30); GLOMERULAR FILTRATION RATE > 60.0 (>60); GLUCOSE, FASTING 98 MG/DL (70-100); POTASSIUM SERUM 4.6 MEQ/L (3.5-5.1); SODIUM LEVEL 138 MEQ/L (136-145)
[2020-08-20] MEDS: SLF 3 ML SYR IV SCH ×3 (05:29→21:45)
--- NOTE | 2020-08-20 08:26 | REP ---
INDICATION: pnthx, after Chest tube placement COMPARISON: 08/19/2020 TECHNIQUE: PA and lateral. FINDINGS: Two right-sided chest tubes and right-sided pleuroparenchymal changes including small apical pneumothorax and possible layering pleural fluid again noted. Aerated lung newton are relatively clear and without new acute consolidation. Mediastinum and cardiac silhouette are within normal limits and stable. IMPRESSION: No significant change from prior examination. Layering pleural fluid at the right base suggested. <Electronically signed by Esau Rich > 08/20/20 0854
[2020-08-20] MEDS: MOM 30ML SUSPENSION UDC PO SCH (08:58)
[2020-08-20] MEDS: DOCUSATE SODIUM 100MG CAPSULE PO SCH ×2 (08:58→21:45)
[2020-08-20] MEDS: PANTOPRAZOLE 40MG TAB (PROTONIX) PO SCH (08:58)
[2020-08-20] MEDS: ATORVASTATIN 20 MG TAB PO SCH (08:58)
[2020-08-20] MEDS: NICOTINE 21MG/24HR 1 EA TRANSDERMAL TD SCH (08:58)
[2020-08-20] MEDS: HEPARIN SOD (PORCINE) 5000UNITS/ML 1ML VIAL/SYRINGE SC SCH ×2 (09:00→21:45)
[2020-08-20] MEDS ORDERED: HEPARIN SOD (PORCINE) 5000UNITS/ML 1ML VIAL/SYRINGE SQ SCH (09:00)
--- NOTE | 2020-08-20 10:31 | IPN ---
PROGRESS NOTE DATE: 08/20/2020 SUBJECTIVE: This is now the third postoperative day for Mr. Bautista. I do not see an air leak today. His pain is being well-controlled with the epidural. OBJECTIVE: VITAL SIGNS: Show a T-max of 98.4 with a heart rate that ranges between 71 and 77 in sinus rhythm. Respiratory rate of 16 to 19 without the use of accessory muscles whose was 94% to 96% saturated on room air and whose blood pressure is ranging between 111/69 to 167/77. INTAKE AND OUTPUT: Over the past 24 hours has been recorded as 2805 in and 3262 out for a negativity of 450 mL. He has put out 112 mL from the chest tube and there is no air leak. Weight today is 66.6 kg, which is slightly down from 66.7 kg yesterday. RESPIRATORY: His lungs show equal breath sounds on either side. I am beginning to hear a faint pleural friction rub on the right side. Percussion notes are full to the diaphragm. CARDIAC: Without murmurs, clicks, gallops, or rubs. I cannot feel his PMI. S1 and S2 are normal. ABDOMEN: Soft and nontender. Bowel sounds are positive. There is no hepatomegaly. No CVA tenderness. EXTREMITIES: Show no pretibial edema. No calf tenderness. No differential swelling of the upper extremities. SKIN: Warm, dry, and perfused without cyanosis or mottling, including that of the nail beds and knees. NECK: Supple. There is no jugular venous distention. No subcutaneous emphysema. Trachea is midline. MOUTH: Shows the mucous membranes to be pink and moist. Lips and commisures are without lesions and no thrush. EYES: Show his pupils equal and reactive. Extraocular motions are intact. Sclerae nonicteric. NEUROLOGIC: Shows II through XII intact. Normal gross motor, gross sensation intact. Gait is not tested. PSYCHIATRIC: Shows him to be awake, alert, and oriented x3 with appropriate mood and affect and conversational. LABORATORY DATA: His white count today is 9.0 with a hemoglobin and hematocrit of 14.2 and 43.6 up from 13.2 and 40.8 yesterday secondary to hemoconcentration. Platelet count is 262,000 and stable, and differential shows 69% neutrophils, 25% lymphocytes, and 10% monocytes. There are no immature forms and no toxic granulations. IMAGING DATA: His chest x-ray shows his lungs fully expand to the chest wall. At first glance, I see an air fluid level, but I think that is in the colon inferiorly. Chest tube is in a good place and there are no infiltrates. IMPRESSION: 1. Postoperative day #3 status post right upper lobe wedge resection, bullectomy, and talc pleurodesis. 2. Recurrent spontaneous pneumothorax right side x3. 3. Chronic obstructive pulmonary disease (COPD). 4. Emphysematous bullous disease. 5. Hypercholesterolemia. 6. Tobacco abuse. PLAN AND DISCUSSION: We removed his Barrios catheter yesterday and he is urinating well. His chest tube output is considerably down and I will not diurese him. I will continue him on suction until postoperative day #4 and then discontinue the chest tube on postoperative day #5.
[2020-08-20] MEDS: KETOROLAC 30 MG/ML 1ML VIAL IV SCH ×3 (10:59→21:45)
[2020-08-20] MEDS: FENTANYL/BUPIVACAINE/NACL BAG 250 ML EPIDURAL SCH (19:20)
[2020-08-21] MEDS: LEVALBUTEROL 1.25 MG/0.5 ML CONCENTRATE NEB NEB SCH ×4 (01:24→19:40)
[2020-08-21 04:02] LABS: BASO # 0.1 10^3/uL (0.0-0.2); BASO % 0.5 % (0.0-1.0); EOS # 0.2 10^3/uL (0.0-0.5); EOS % 2.6 % (0.0-3.0); HEMATOCRIT 42.3 % (42.0-52.0); HEMOGLOBIN 14.2 g/dl (13.5-17.5); LYMPH # 2.6 10^3/uL (1.5-5.0); LYMPH % 27.6 % (24.0-44.0); MEAN CORPUSCULAR HEMOGLOBIN 30.9 pg (27.0-33.0); MEAN CORPUSCULAR HGB CONC 33.6 g/dl (32.0-36.5); MEAN CORPUSCULAR VOLUME 92.2 fl (80.0-96.0); MONO # 0.8 10^3/uL (0.0-0.8); MONO % 8.4 % (2.0-8.0); NEUTROPHILS # 5.6 10^3/uL (1.5-8.5); PLATELET COUNT, AUTOMATED 258 10^3/uL (150-450); RED BLOOD COUNT 4.59 10^6/uL (4.30-6.10); WHITE BLOOD COUNT 9.3 10^3/uL (4.0-10.0)
[2020-08-21] MEDS: KETOROLAC 30 MG/ML 1ML VIAL IV SCH ×4 (04:21→21:05)
[2020-08-21 04:22] LABS: BLOOD UREA NITROGEN 18 MG/DL (7-18); CALCIUM LEVEL 8.7 MG/DL (8.5-10.1); CARBON DIOXIDE LEVEL 28 MEQ/L (21-32); CHLORIDE LEVEL 104 MEQ/L (98-107); CREATININE FOR GFR 0.83 MG/DL (0.70-1.30); GLOMERULAR FILTRATION RATE > 60.0 (>60); GLUCOSE, FASTING 96 MG/DL (70-100); POTASSIUM SERUM 4.5 MEQ/L (3.5-5.1); SODIUM LEVEL 136 MEQ/L (136-145)
[2020-08-21 04:56] VITALS: BP 121/67
[2020-08-21] MEDS: SLF 3 ML SYR IV SCH ×3 (05:15→22:38)
[2020-08-21 07:31] VITALS: BP 100/58
--- NOTE | 2020-08-21 08:24 | REP ---
INDICATION: pnthx, after Chest tube placement COMPARISON: 08/20/2020 TECHNIQUE: PA and lateral. FINDINGS: Two right-sided chest tubes are in stable position and right-sided pleuroparenchymal changes are essentially unchanged including subcutaneous emphysema as well as fluid level at the right base. No new process identified. Mediastinum and cardiac silhouette are within normal limits. Skeletal structures are intact. IMPRESSION: No significant change from prior examination. <Electronically signed by Esau Rich > 08/21/20 0274
[2020-08-21] MEDS: HEPARIN SOD (PORCINE) 5000UNITS/ML 1ML VIAL/SYRINGE SC SCH ×2 (09:00→21:05)
[2020-08-21] MEDS: NICOTINE 21MG/24HR 1 EA TRANSDERMAL TD SCH (09:00)
[2020-08-21] MEDS: PANTOPRAZOLE 40MG TAB (PROTONIX) PO SCH (09:01)
[2020-08-21] MEDS: DOCUSATE SODIUM 100MG CAPSULE PO SCH ×2 (09:01→21:04)
[2020-08-21] MEDS: ATORVASTATIN 20 MG TAB PO SCH (09:01)
[2020-08-21] MEDS: MOM 30ML SUSPENSION UDC PO SCH (09:02)
--- NOTE | 2020-08-21 11:05 | IPN ---
PROGRESS NOTE DATE: 08/21/2020 SUBJECTIVE: Eliud is stable. No changes today. No shortness of breath and feels he is doing well. PHYSICAL EXAMINATION: VITAL SIGNS: Afebrile with vital signs stable. LUNGS: Good air movement bilaterally. HEART: Regular rhythm. ABDOMEN: Soft, nontender. EXTREMITIES: No peripheral edema. LABORATORY DATA: CBC unremarkable. Chem profile unremarkable. IMPRESSION: Medically stable. 1. Postoperative day #4, status post right upper lobe wedge resection, bullectomy and talc pleurodesis: Chest tube management by Dr. Cheung. 2. COPD: Continue his bronchodilator. 3. Hyperlipidemia: Continue his lipid therapy. 4. Tobacco abuse: We previously talked about smoking cessation.
[2020-08-21 12:00] VITALS: BP 116/69
[2020-08-21 16:00] VITALS: BP 127/75
[2020-08-21] MEDS: FENTANYL/BUPIVACAINE/NACL BAG 250 ML EPIDURAL SCH (18:23)
[2020-08-21 19:00] VITALS: BP 127/71
[2020-08-21 20:00] VITALS: BP 117/75
[2020-08-22] VITALS: BP 95/53
[2020-08-22] MEDS: LEVALBUTEROL 1.25 MG/0.5 ML CONCENTRATE NEB NEB SCH ×4 (02:11→19:35)
[2020-08-22] MEDS: SLF 3 ML SYR IV SCH ×3 (03:49→21:17)
[2020-08-22] MEDS: KETOROLAC 30 MG/ML 1ML VIAL IV SCH ×4 (03:49→21:17)
[2020-08-22 04:00] VITALS: BP 99/57
[2020-08-22 05:11] LABS: BASO # 0.1 10^3/uL (0.0-0.2); BASO % 0.5 % (0.0-1.0); EOS # 0.2 10^3/uL (0.0-0.5); EOS % 1.7 % (0.0-3.0); HEMATOCRIT 42.4 % (42.0-52.0); HEMOGLOBIN 13.9 g/dl (13.5-17.5); LYMPH # 1.9 10^3/uL (1.5-5.0); MEAN CORPUSCULAR HEMOGLOBIN 30.3 pg (27.0-33.0); MEAN CORPUSCULAR HGB CONC 32.8 g/dl (32.0-36.5); MEAN CORPUSCULAR VOLUME 92.4 fl (80.0-96.0); MONO # 0.7 10^3/uL (0.0-0.8); MONO % 6.8 % (2.0-8.0); NEUTROPHILS # 6.7 10^3/uL (1.5-8.5); NEUTROPHILS % 70.4 % (36.0-66.0); PLATELET COUNT, AUTOMATED 295 10^3/uL (150-450); RED BLOOD COUNT 4.59 10^6/uL (4.30-6.10); WHITE BLOOD COUNT 9.5 10^3/uL (4.0-10.0)
[2020-08-22 05:22] LABS: BLOOD UREA NITROGEN 19 MG/DL (7-18); CALCIUM LEVEL 8.6 MG/DL (8.5-10.1); CARBON DIOXIDE LEVEL 28 MEQ/L (21-32); CHLORIDE LEVEL 105 MEQ/L (98-107); CREATININE FOR GFR 0.97 MG/DL (0.70-1.30); GLOMERULAR FILTRATION RATE > 60.0 (>60); GLUCOSE, FASTING 97 MG/DL (70-100); POTASSIUM SERUM 4.5 MEQ/L (3.5-5.1); SODIUM LEVEL 138 MEQ/L (136-145)
[2020-08-22 08:00] VITALS: BP 118/64
--- NOTE | 2020-08-22 08:37 | REP ---
INDICATION: pnthx, after Chest tube placement COMPARISON: 08/21/2020 TECHNIQUE: PA and lateral. FINDINGS: Right apical chest tube is in stable position. Second chest tube via anterior approach now extends over the mediastinum. Right pneumothorax has increased from prior examination now measuring roughly 5 cm from the apex. The bilateral aerated lung newton are otherwise relatively clear. Blunting to the bilateral costophrenic angles is a nonspecific finding and may represent acute versus chronic pleural reactions. Cardiac silhouette and mediastinum are within normal limits. IMPRESSION: Right apical pneumothorax increased from prior examination. No new further process appreciated. <Electronically signed by Esau Rich > 08/22/20 [id number]
--- NOTE | 2020-08-22 09:06 | IPN ---
PROGRESS NOTE DATE: 08/20/2020 SUBJECTIVE: Eliud is seen in the PCU. Dr. Cheung has been managing his chest tube. He feels well, a little bit of discomfort with breathing as would be expected with a chest tube but overall feels he is improving. No fever or chills. OBJECTIVE: VITAL SIGNS: Afebrile. Vital signs are stable. CHEST: Chest tube right chest. Lungs show good air movement bilaterally. No crepitus over the chest wall. HEART: Regular rate and rhythm. ABDOMEN: Soft, nontender. EXTREMITIES: No peripheral edema. LABORATORY DATA: CBC is unremarkable. CMP looks unremarkable. IMPRESSION: 1. Spontaneous pneumothorax, right lung. Chest tube management per Dr. Cheung. 2. COPD, continue bronchodilator therapy. 3. Emphysematous bullous disease. He is at risk of recurrent pneumothorax. 4. Hyperlipidemia, continue statin therapy. 5. Tobacco abuse. Smoking cessation discussed.
[2020-08-22] MEDS: DOCUSATE SODIUM 100MG CAPSULE PO SCH ×2 (09:08→21:15)
[2020-08-22] MEDS: ATORVASTATIN 20 MG TAB PO SCH (09:08)
[2020-08-22] MEDS: MOM 30ML SUSPENSION UDC PO SCH (09:08)
[2020-08-22] MEDS: PANTOPRAZOLE 40MG TAB (PROTONIX) PO SCH (09:08)
[2020-08-22] MEDS: HEPARIN SOD (PORCINE) 5000UNITS/ML 1ML VIAL/SYRINGE SC SCH ×2 (09:09→21:17)
[2020-08-22] MEDS: NICOTINE 21MG/24HR 1 EA TRANSDERMAL TD SCH (09:10)
--- NOTE | 2020-08-22 09:58 | IPN ---
PROGRESS NOTE DATE: 08/21/2020 SUBJECTIVE: This is now the fourth postoperative day for Mr. Bautista. He has a small air leak today. I will take him off suction today, however. The air leak is only seen on forceful coughing. OBJECTIVE: VITAL SIGNS: Show a T-max of 97.9 with a heart rate that ranges between 58 and 66 in sinus rhythm. Respiratory rate of 19 to 20 without the use of accessory muscles and who is 100% to 97% saturated on room air. Blood pressure ranging between 121/67 to 100/58. INTAKE AND OUTPUT: Over the past 24 hours has been recorded as 2122 in and 3500 out for a negativity of 1300 mL. He has put out 75 mL from the chest tube and there is the above air leak. He weighs 66.4 kg today compared to 66.6 kg yesterday. RESPIRATORY: He has equal breath sounds on either side. He has some bronchophony in the upper lobe, which I think is probably a pleural friction rub on the right side. Percussion notes are full to the diaphragm. CARDIAC: Without murmurs, clicks, gallops, or rubs. I cannot feel his PMI. S1 and S2 are normal. ABDOMEN: Soft and nontender. Bowel sounds are positive. There is no hepatomegaly. EXTREMITIES: Show no pretibial edema. No calf tenderness. No differential swelling of the upper extremities. SKIN: Warm, dry, and perfused without cyanosis or mottling, including that of the nail beds and knees. NECK: Supple. There is no jugular venous distention. No subcutaneous emphysema. Trachea is midline. MOUTH: Shows the mucous membranes to be pink and moist. Lips and commisures are without lesions and no thrush. EYES: Show his pupils equal and reactive. Extraocular movements are intact. Sclerae nonicteric. NEUROLOGIC: Shows II through XII intact. Normal gross motor, gross sensation intact. Gait is not tested. PSYCHIATRIC: Shows his to be awake, alert, and oriented x3 with appropriate mood and affect and conversational. IMAGING DATA: His chest x-ray today shows his lungs fully expand to the chest wall. Chest tubes are in good place. Costophrenic angles are sharp and there are no infiltrates. IMPRESSION: 1. Postoperative day #4 status post right upper lobe wedge resection, bullectomy, and talc pleurodesis. 2. Spontaneous recurrence pneumothorax on the right x3. 3. Chronic obstructive pulmonary disease (COPD). 4. Emphysematous bullous disease. 5. Hypercholesterolemia. 6. Tobacco use. PLAN AND DISCUSSION: I will discontinue his suction today. Hopefully his air leak will stop and I will be able to remove his chest tubes tomorrow. We will check a chest x-ray tomorrow prior to removing the chest tubes. I have shown him his intraoperative pictures.
--- NOTE | 2020-08-22 10:09 | IPN ---
PROGRESS NOTE DATE: 08/22/2020 SUBJECTIVE: Eliud is discouraged. He went down for a chest x-ray and his right apical pneumothorax has increased in size so chest tube is back to suction otherwise there is on change in his status. PHYSICAL EXAMINATION: Afebrile, vital signs stable. Lungs: Good air movement bilaterally. Heart: Rhythm regular. Abdomen: Soft, nontender. Extremities: No peripheral edema. LABORATORY DATA: CBC unremarkable. CMP unremarkable. IMPRESSIONS/PLANS: 1. Post-op day number 5 status post right upper lobe wedge resection, bullectomy and talc pleurodesis: Chest tube management by Dr. hCeung. 2. COPD: Continue bronchodilator. 3. Hyperlipidemia: Continue anti-lipid therapy. 4. Tobacco abuse: Smoking cessation has been discussed. DISPOSITION: Dependent on progression with chest tube, etc.
[2020-08-22 12:00] VITALS: BP 108/66
--- NOTE | 2020-08-22 12:02 | IPN ---
PROGRESS NOTE DATE: 08/22/2020 SUBJECTIVE: Mr. Bautista is clinically doing well today; however, his chest x-ray today after taking him off suction yesterday shows his lung has fallen from the chest wall. I, therefore, placed him back on suction. He is understandably disappointed. OBJECTIVE: VITAL SIGNS: Show a T-max of 98.1 with a heart rate that ranges between 65 to 66 in sinus rhythm. Respiratory rate of 16 to 18 without the use of accessory muscles who is 95% saturated on room air and whose blood pressure is ranging between 95/53 to 99/57. INTAKE AND OUTPUT: Over the past 24 hours has been recorded as 1324 in and 2390 out for negativity of 1066 mL. He has put out 40 mL from the chest tube and there is an air leak with forceful coughing. Weight today is 64.4 kg compared to 66.4 kg yesterday. RESPIRATORY: He has decreased breath sounds on the right side, which resolves with placing him back on suction. He has squeaks and squeals of a small air leak. Percussion notes are full to the diaphragm. CARDIAC: Without murmurs, clicks, gallops, or rubs. I cannot feel his PMI. S1 and S2 are normal. ABDOMEN: Soft and nontender. Bowel sounds are positive. There is no hepatomegaly. No CVA tenderness. EXTREMITIES: Show no pretibial edema. No calf tenderness. No differential swelling of the upper extremities. SKIN: Warm, dry, and perfused without cyanosis or mottling, including that of the nail beds and knees. NECK: Supple. There is no jugular venous distention. No subcutaneous emphysema. Trachea is midline. MOUTH: Shows the mucous membranes to be pink and moist. Lips and commisures are without lesions and no thrush. EYES: Show his pupils equal and reactive. Extraocular movements are intact. Sclerae nonicteric. NEUROLOGIC: Shows II through XII intact. Normal gross motor, gross sensation intact. Gait is not tested. PSYCHIATRIC: Shows him to be awake, alert, and oriented x3 with appropriate mood and affect and conversational. LABORATORY DATA: His white count today is 9.5 with a hemoglobin and hematocrit of 13.9 and 42.4 respectively and a platelet count of 295,000. Differential shows 64% neutrophils, 20% lymphocytes, 6% monocytes. There are no immature forms and no toxic granulations. His electrolytes are normal with a BUN and creatinine of 19 and 0.97, glucose of 97, and a calcium of 8.6. IMAGING DATA: His chest x-ray today is described above. His lung has from the chest all and there is now a considerable apical air space. It measures approximately 3 to 4 cm. Chest tubes are in good place. IMPRESSION: 1. Postoperative day #5 status post talc pleurodesis and wedge resection. 2. Chronic obstructive pulmonary disease (COPD). 3. Tobacco abuse. 4. Continued air leak. 5. Emphysematous bullous disease. 6. Hypercholesterolemia. PLAN AND DISCUSSION: I will replace his chest tubes to 40 cm of suction. I have urged him to be patient, as almost all of these air leaks stop eventually. It is going to take longer in him than usual, as his lung parenchyma is so poor secondary to his underlying COPD.
[2020-08-22 16:00] VITALS: BP 120/66
[2020-08-22] MEDS: FENTANYL/BUPIVACAINE/NACL BAG 250 ML EPIDURAL SCH (18:35)
[2020-08-22 20:00] VITALS: BP 117/63
[2020-08-23] VITALS: BP 106/60
[2020-08-23] MEDS ORDERED: diphenhydrAMINE 50MG/ML VIAL (J1200) IM PRN
[2020-08-23] MEDS ORDERED: EPINEPHrine INJ 1 MG/ML 1ML AMP IM PRN
[2020-08-23] MEDS: LEVALBUTEROL 1.25 MG/0.5 ML CONCENTRATE NEB NEB SCH ×4 (01:21→20:27)
[2020-08-23 04:00] VITALS: BP 110/64
[2020-08-23] MEDS: KETOROLAC 30 MG/ML 1ML VIAL IV SCH ×4 (04:16→21:19)
[2020-08-23 05:08] LABS: BASO # 0.1 10^3/uL (0.0-0.2); BASO % 0.8 % (0.0-1.0); EOS # 0.2 10^3/uL (0.0-0.5); EOS % 2.2 % (0.0-3.0); HEMOGLOBIN 13.6 g/dl (13.5-17.5); LYMPH # 2.1 10^3/uL (1.5-5.0); LYMPH % 22.7 % (24.0-44.0); MEAN CORPUSCULAR HEMOGLOBIN 29.8 pg (27.0-33.0); MEAN CORPUSCULAR HGB CONC 32.4 g/dl (32.0-36.5); MEAN CORPUSCULAR VOLUME 91.9 fl (80.0-96.0); MONO # 0.8 10^3/uL (0.0-0.8); MONO % 8.3 % (2.0-8.0); NEUTROPHILS % 64.9 % (36.0-66.0); PLATELET COUNT, AUTOMATED 300 10^3/uL (150-450); RED BLOOD COUNT 4.57 10^6/uL (4.30-6.10); WHITE BLOOD COUNT 9.3 10^3/uL (4.0-10.0)
[2020-08-23 05:33] LABS: BLOOD UREA NITROGEN 15 MG/DL (7-18); CALCIUM LEVEL 8.8 MG/DL (8.5-10.1); CARBON DIOXIDE LEVEL 28 MEQ/L (21-32); CHLORIDE LEVEL 105 MEQ/L (98-107); CREATININE FOR GFR 0.86 MG/DL (0.70-1.30); GLOMERULAR FILTRATION RATE > 60.0 (>60); GLUCOSE, FASTING 106 MG/DL (70-100); POTASSIUM SERUM 4.5 MEQ/L (3.5-5.1); SODIUM LEVEL 138 MEQ/L (136-145)
[2020-08-23] MEDS: SLF 3 ML SYR IV SCH ×3 (05:59→21:11)
[2020-08-23 08:00] VITALS: BP 110/72
--- NOTE | 2020-08-23 08:04 | REP ---
INDICATION: pnthx, after Chest tube placement COMPARISON: 08/22/2020 TECHNIQUE: PA and lateral. FINDINGS: Right sided chest tubes in stable position and the pneumothorax is considerably decreased. The mediastinum and cardiac silhouette are normal. The lung newton are relatively clear and without new consolidation or effusion. The skeletal structures are stable. IMPRESSION: Improved decreased right apical pneumothorax. No new acute cardiopulmonary process. <Electronically signed by Esau Rich > 08/23/20 0800
[2020-08-23] MEDS: NICOTINE 21MG/24HR 1 EA TRANSDERMAL TD SCH (08:07)
[2020-08-23] MEDS: MOM 30ML SUSPENSION UDC PO SCH (08:07)
[2020-08-23] MEDS: ATORVASTATIN 20 MG TAB PO SCH (08:08)
[2020-08-23] MEDS: HEPARIN SOD (PORCINE) 5000UNITS/ML 1ML VIAL/SYRINGE SC SCH ×2 (08:08→21:11)
[2020-08-23] MEDS: DOCUSATE SODIUM 100MG CAPSULE PO SCH ×2 (08:08→21:11)
[2020-08-23] MEDS: PANTOPRAZOLE 40MG TAB (PROTONIX) PO SCH (08:08)
[2020-08-23 12:00] VITALS: BP 104/61
--- NOTE | 2020-08-23 13:30 | IPN ---
PROGRESS NOTE DATE: 08/23/2020 This is now Mr. Bautista's sixth postoperative day. I had to reinstate his suction yesterday at 40. His lung is now back to the chest wall on chest x-ray, and there is no air leak. His vital signs show a maximum temperature of 97.4 with a heart rate that ranges between 61-65 in a sinus rhythm, respiratory rate of 16-18 without the use of accessory muscles, who is 97-100% saturated on room air and whose blood pressure is ranging between 110/72 to 106/60. His intake and output for the past 24 hours has been recorded as 2583 in and 3875 out, for a negative of 1292 mL. He has put out 75 mL from the chest tube, and there is no air leak. PHYSICAL EXAMINATION: His lungs do show a pleural friction rub on the right side. Percussion notes are full to the diaphragm. Left lung shows normal vesicular sounds. Cardiac exam is without murmurs, clicks, gallops, or rubs. I cannot feel his point of maximal impulse (PMI). S1 and S2 are normal. Abdomen is soft and nontender. Bowel sounds are positive. There is no hepatomegaly. No costovertebral angle (CVA) tenderness. Extremities show no pretibial edema, no calf tenderness, no differential swelling of the upper extremities. Skin is warm, dry, and perfused without cyanosis or mottling, including that of the nailbeds and knees. Neck is supple. There is no jugular venous distention. No subcutaneous emphysema. Trachea is midline. Mouth shows the mucous membranes to be pink and moist. Lips and commissures without lesions. No thrush. Eyes show his pupils to be equal and reactive. Extraocular motion intact. Sclerae anicteric. Neurologic shows II-XII intact. Normal gross motor, gross sensation intact. Gait is not tested. Psychiatric shows him to be awake, alert, and oriented times three with appropriate mood and affect and conversational. His white count today is 9.3 with a hemoglobin and hematocrit of 13.6 and 42.0, unchanged from yesterday, with a platelet count of 300 and stable. Differential shows 64% neutrophils, 22% lymphocytes, 8% monocytes. There are no immature forms or toxic granulations. His chemistries today show normal electrolytes with a BUN and creatinine of 15 and 0.86, a glucose of 106, and a calcium of 8.0. His chest x-ray today shows a small apical airspace on the right. There is no subcutaneous emphysema. Costophrenic angles are sharp, and there are no infiltrates. Chest tube is in good place. IMPRESSION: 1. Postoperative day #6 status post talc pleurodesis and wedge resection, right upper lobe. 2. Chronic obstructive pulmonary disease (COPD). 3. Tobacco abuse. 4. Continued air leak, now stopped. 5. Emphysematous bullous disease. 6. Hypercholesterolemia. PLAN AND DISCUSSION: I will decrease his chest tube suction to 20. We will wean his epidural 1 mL per hour and substitute oral pain medications. If all goes well tomorrow, I will put him back on water seal and again check a chest x-ray in 24 hours.
[2020-08-23 16:00] VITALS: BP 118/75
[2020-08-23] MEDS ORDERED: COVID-19 VAC,AD26(JANSSEN)/PF 0.5ML SYRINGE (EUA) IM ONE (17:00)
--- NOTE | 2020-08-23 18:59 | IPNPDOC ---
Subjective Date Seen The patient was seen on 08/23/20. Subjective Chief Complaint/HPI Mr. Bautista is a 40 year old male who had a spontaneous pneumothorax s/p wedge resection, bullectomy, and talc pleurodesis. This morning, he denies any chest pain or dyspnea. He still has the epidural and the chest tube. Objective Physical Examination General Exam: Positive: Alert, Cooperative Eye Exam: Positive: EOMI; Negative: Sclera icteric ENT Exam: Positive: Atraumatic Neck Exam: Positive: Supple Chest Exam: Positive: Clear to auscultation Heart Exam: Positive: Rate Normal, Regular Rhythm Abdomen Exam: Positive: Normal bowel sounds, Soft; Negative: Tenderness Extremity Exam: Negative: Edema Neuro Exam: Positive: Normal Speech Psych Exam: Positive: Mental status NL, Mood NL Assessment /Plan Assessment Mr. Bautista is a 40 year old male who had a spontaneous pneumothorax s/p wedge resection, bullectomy, and talc pleurodesis. Dr. Cheung has been managing the chest tube and epidural. Today is POD#6 Plan/VTE VTE Prophylaxis Ordered?: Yes Plan 1. Spontaneous pneumothorax -S/P right upper lobe wedge resection, bullectomy, and talc pleurodesis on 08/17/2020 -Dr. Cheung following and managing chest tube. 2. COPD -Continue inhalers 3. Tobacco use -Currently on nicotine patch 4. Hyperlipidemia -Continue atorvastatin 5. GERD -Continue Protonix 6. DVT ppx -Heparin subQ VS, I&O, 24H, Fishbone Vital Signs/I&O Vital Signs Date Time Temp Pulse Resp B/P (MAP) Pulse Ox O2 Delivery O2 Flow Rate FiO2 08/23/20 16:00 97.3 91 18 118/75 (89) 97 Room Air 08/18/20 06:00 2.0 08/17/20 17:35 100 I&O- Last 24 Hours up to 6 AM 08/23/20 06:00 Intake Total 2559 ml Output Total 3495 ml Balance -936 ml Laboratory Data 24H LABS Laboratory Tests 2 08/23/20 04:44: Immature Granulocyte % (Auto) 1.1, Neutrophils (%) (Auto) 64.9, Lymphocytes (%) (Auto) 22.7L, Monocytes (%) (Auto) 8.3H, Eosinophils (%) (Auto) 2.2, Basophils (%) (Auto) 0.8, Neutrophils # (Auto) 6.0, Lymphocytes # (Auto) 2.1, Monocytes # (Auto) 0.8, Eosinophils # (Auto) 0.2, Basophils # (Auto) 0.1, Nucleated Red Blood Cells % (auto) 0.0, Anion Gap 5L, Glomerular Filtration Rate > 60.0, Calcium Level 8.8 CBC/BMP Laboratory Tests 08/23/20 04:44 BILL HEADLEY 9, 2021 18:59
[2020-08-23 20:00] VITALS: BP 108/61
[2020-08-23] MEDS ORDERED: CALCIUM CARBONATE 500 MG CHEW U/D PO PRN (20:15)
[2020-08-23] MEDS: NORCO, ANEXSIA 5/325MG TABLET (HYDROcodone/ACETAMINOPHEN) PO PRN (21:18)
[2020-08-24] VITALS: BP 117/71
[2020-08-24] MEDS: LEVALBUTEROL 1.25 MG/0.5 ML CONCENTRATE NEB NEB SCH ×4 (01:34→19:51)
[2020-08-24 04:00] VITALS: BP 120/70
[2020-08-24] MEDS: KETOROLAC 30 MG/ML 1ML VIAL IV SCH ×4 (04:45→21:29)
[2020-08-24] MEDS: SLF 3 ML SYR IV SCH ×3 (04:46→21:29)
[2020-08-24 05:43] LABS: HEMATOCRIT 43.7 % (42.0-52.0); MEAN CORPUSCULAR HEMOGLOBIN 29.9 pg (27.0-33.0); MEAN CORPUSCULAR VOLUME 93.2 fl (80.0-96.0); PLATELET COUNT, AUTOMATED 291 10^3/uL (150-450); RED BLOOD COUNT 4.69 10^6/uL (4.30-6.10)
[2020-08-24 05:57] LABS: BLOOD UREA NITROGEN 14 MG/DL (7-18); CALCIUM LEVEL 9.5 MG/DL (8.5-10.1); CARBON DIOXIDE LEVEL 32 MEQ/L (21-32); CHLORIDE LEVEL 103 MEQ/L (98-107); CREATININE FOR GFR 0.87 MG/DL (0.70-1.30); GLOMERULAR FILTRATION RATE > 60.0 (>60); GLUCOSE, FASTING 88 MG/DL (70-100); SODIUM LEVEL 138 MEQ/L (136-145)
[2020-08-24 07:41] VITALS: BP 131/73
--- NOTE | 2020-08-24 07:48 | REP ---
INDICATION: pnthx, after Chest tube placement. COMPARISON: Comparison chest x-ray August 23, 2020. TECHNIQUE: Two views.. FINDINGS: Two right-sided chest tubes remain in place unchanged. There is a small right apical pneumothorax again noted essentially unchanged. There is some extra thoracic soft tissue emphysema along the right chest wall as before. No acute infiltrate is seen. Heart is not enlarged. There is slight blunting of the left pleural angle. No acute bony abnormality. The epidural catheter is no longer visible. IMPRESSION: Two right chest tubes in place. Small right apical pneumothorax persists essentially unchanged.. <Electronically signed by Jp Rodríguez > 08/24/20 [id number]
[2020-08-24] MEDS: HEPARIN SOD (PORCINE) 5000UNITS/ML 1ML VIAL/SYRINGE SC SCH ×2 (08:32→21:29)
[2020-08-24] MEDS: DOCUSATE SODIUM 100MG CAPSULE PO SCH ×2 (08:32→21:00)
[2020-08-24] MEDS: MOM 30ML SUSPENSION UDC PO SCH (08:32)
[2020-08-24] MEDS: NICOTINE 21MG/24HR 1 EA TRANSDERMAL TD SCH (08:33)
[2020-08-24] MEDS: PANTOPRAZOLE 40MG TAB (PROTONIX) PO SCH (08:33)
[2020-08-24] MEDS: ATORVASTATIN 20 MG TAB PO SCH (08:33)
[2020-08-24] MEDS: PERCOCET 5MG/325MG TAB PO PRN ×2 (08:35→21:29)
[2020-08-24 11:57] VITALS: BP 109/65
--- NOTE | 2020-08-24 12:46 | IPN ---
PROGRESS NOTE DATE: 08/24/2020 This is now the 7th postoperative day for Mr. Bautista. There is no air leak. I will discontinue his suction. His pain is being well controlled. His vital signs show a maximum temperature of 98.5 with a heart rate that ranges between 59-97 in a sinus rhythm, respiratory rate that is constant at 18, who is 98% saturated on room air and whose blood pressure is ranging between 109/65 to 131/73. His intake and output for the past 24 hours has been recorded as 1764 in and 2985 out for a negativity of 1200 mL. He has put 60 mL out of the chest tube, and there is no leak. He weighs 63.4 kg today compared to 64 kg yesterday. On physical examination, he has equal breath sounds on either side. I hear no wheezes, rhonchi, or rales. I do not hear a pleural friction rub. Percussion note is full to the diaphragm. Cardiac exam is without murmurs, clicks, gallops, or rubs. I cannot feel his point of maximal impulse (PMI). S1 and S2 are normal. Abdomen is soft and nontender. Bowel sounds are positive. There is no hepatomegaly. No costovertebral angle (CVA) tenderness. He has had a bowel movement. Extremities show no pretibial edema, no calf tenderness, no differential swelling of the upper extremities. Skin is warm, dry, and perfused without cyanosis or mottling, including that of the nailbeds and knees. Neck is supple. There is no jugular venous distention. No subcutaneous emphysema. Trachea is midline. Mouth shows his mucous membranes to be pink and moist. Lips and commissures without lesions. No thrush. Eyes show his pupils to be equal and reactive. Extraocular motion intact. Sclerae anicteric. Neurologic shows II-XII intact. Normal gross motor, gross sensation intact. Gait is not tested. Psychiatric shows him to be awake, alert, and oriented times three with appropriate mood and affect and conversational. His white count today is 8.0 with a hemoglobin and hematocrit of 14.0 and 43.7, essentially unchanged from yesterday with a platelet count of 291. There is no differential. His electrolytes are normal with a BUN and creatinine of 14 and 0.87, a glucose of 88, and a calcium of 9.5. His chest x-ray shows his lung expanded to the chest wall. Chest tubes are in a good place. Costophrenic angles are sharp. I see no residual airspace in the cupula of the right lung. Lateral chest x-ray shows no posterior infiltrates. IMPRESSION: 1. Postoperative day #7 status post talc pleurodesis and wedge resection, right upper lobe. 2. Chronic obstructive pulmonary disease (COPD). 3. Tobacco abuse. 4. Continued air leak, now stopped. 5. Emphysematous bullous disease. 6. Hypercholesterolemia. PLAN AND DISCUSSION: I will discontinue the chest tube suction today. If the x-ray shows his lung expanded to the chest wall tomorrow, I will remove his chest tube and plan for discharge the day after.
--- NOTE | 2020-08-24 13:23 | IPNPDOC ---
Subjective Date Seen The patient was seen on 08/24/20. Subjective Chief Complaint/HPI Mr. Bautista is a 40 year old male who had a spontaneous pneumothorax s/p wedge resection, bullectomy, and talc pleurodesis. Epidural was not not present in the room when I evaluated him this morning. Pain is controlled. Denies chest pain or worsening dyspnea. Objective Physical Examination General Exam: Positive: Alert, Cooperative Eye Exam: Positive: EOMI; Negative: Sclera icteric ENT Exam: Positive: Atraumatic Neck Exam: Positive: Supple Chest Exam: Positive: Clear to auscultation, Diminished (right lung) Heart Exam: Positive: Rate Normal, Regular Rhythm Abdomen Exam: Positive: Normal bowel sounds, Soft; Negative: Tenderness Extremity Exam: Negative: Edema Neuro Exam: Positive: Normal Speech Psych Exam: Positive: Mental status NL, Mood NL Assessment /Plan Assessment Mr. Bautista is a 40 year old male who had a spontaneous pneumothorax s/p wedge resection, bullectomy, and talc pleurodesis. Dr. Cheung has been managing the chest tube and epidural. Today is POD#7 Plan/VTE VTE Prophylaxis Ordered?: Yes Plan 1. Spontaneous pneumothorax -S/P right upper lobe wedge resection, bullectomy, and talc pleurodesis on 08/17/2020 -Dr. Cheung following and managing chest tube. 2. COPD -Continue inhalers 3. Tobacco use -Currently on nicotine patch 4. Hyperlipidemia -Continue atorvastatin 5. GERD -Continue Protonix 6. DVT ppx -Heparin subQ Disposition: Pending clearance from Dr. Cheung VS, I&O, 24H, Fishbone Vital Signs/I&O Vital Signs Date Time Temp Pulse Resp B/P (MAP) Pulse Ox O2 Delivery O2 Flow Rate FiO2 08/24/20 11:57 98.5 71 18 109/65 (80) 98 Room Air 08/18/20 06:00 2.0 I&O- Last 24 Hours up to 6 AM 08/24/20 06:00 Intake Total 1740 ml Output Total 2370 ml Balance -630 ml Laboratory Data 24H LABS Laboratory Tests 2 08/24/20 04:51: Nucleated Red Blood Cells % (auto) 0.0, Anion Gap 3L, Glomerular Filtration Rate > 60.0, Calcium Level 9.5 CBC/BMP Laboratory Tests 08/24/20 04:51 BILL HEADLEY DO Aug 24, 2020 13:23
[2020-08-24 13:53] LABS: BLOOD UREA NITROGEN 12 MG/DL (7-18); CALCIUM LEVEL 9.5 MG/DL (8.5-10.1); CARBON DIOXIDE LEVEL 27 MEQ/L (21-32); CHLORIDE LEVEL 102 MEQ/L (98-107); CREATININE FOR GFR 0.91 MG/DL (0.70-1.30); GLOMERULAR FILTRATION RATE > 60.0 (>60); GLUCOSE, FASTING 99 MG/DL (70-100); POTASSIUM SERUM 4.8 MEQ/L (3.5-5.1); SODIUM LEVEL 136 MEQ/L (136-145)
[2020-08-24 15:43] VITALS: BP 117/73
[2020-08-24 20:00] VITALS: BP 120/74
[2020-08-25] VITALS: BP 112/67
[2020-08-25] MEDS: LEVALBUTEROL 1.25 MG/0.5 ML CONCENTRATE NEB NEB SCH ×5 (01:01→23:17)
[2020-08-25] MEDS: KETOROLAC 30 MG/ML 1ML VIAL IV SCH (03:46)
[2020-08-25 04:00] VITALS: BP 117/69
[2020-08-25] MEDS: SLF 3 ML SYR IV SCH ×3 (04:14→20:00)
[2020-08-25 06:20] LABS: HEMATOCRIT 43.4 % (42.0-52.0); HEMOGLOBIN 14.4 g/dl (13.5-17.5); MEAN CORPUSCULAR HEMOGLOBIN 30.9 pg (27.0-33.0); MEAN CORPUSCULAR HGB CONC 33.2 g/dl (32.0-36.5); MEAN CORPUSCULAR VOLUME 93.1 fl (80.0-96.0); PLATELET COUNT, AUTOMATED 299 10^3/uL (150-450); RED BLOOD COUNT 4.66 10^6/uL (4.30-6.10); WHITE BLOOD COUNT 7.8 10^3/uL (4.0-10.0)
[2020-08-25 06:41] LABS: BLOOD UREA NITROGEN 14 MG/DL (7-18); CALCIUM LEVEL 9.2 MG/DL (8.5-10.1); CARBON DIOXIDE LEVEL 29 MEQ/L (21-32); CHLORIDE LEVEL 104 MEQ/L (98-107); CREATININE FOR GFR 0.85 MG/DL (0.70-1.30); GLOMERULAR FILTRATION RATE > 60.0 (>60); GLUCOSE, FASTING 89 MG/DL (70-100); POTASSIUM SERUM 4.4 MEQ/L (3.5-5.1); SODIUM LEVEL 138 MEQ/L (136-145)
[2020-08-25 07:31] VITALS: BP 106/62
[2020-08-25] MEDS: NICOTINE 21MG/24HR 1 EA TRANSDERMAL TD SCH (08:03)
[2020-08-25] MEDS: HEPARIN SOD (PORCINE) 5000UNITS/ML 1ML VIAL/SYRINGE SC SCH ×2 (08:03→19:51)
[2020-08-25] MEDS: MOM 30ML SUSPENSION UDC PO SCH (08:03)
[2020-08-25] MEDS: DOCUSATE SODIUM 100MG CAPSULE PO SCH ×2 (08:04→19:51)
[2020-08-25] MEDS: ATORVASTATIN 20 MG TAB PO SCH (08:04)
[2020-08-25] MEDS: PANTOPRAZOLE 40MG TAB (PROTONIX) PO SCH (08:04)
[2020-08-25] MEDS: PERCOCET 5MG/325MG TAB PO PRN ×2 (08:04→18:30)
--- NOTE | 2020-08-25 08:30 | REP ---
INDICATION: Chest Tube COMPARISON: 08/24/2020 TECHNIQUE: PA and lateral. FINDINGS: Two right-sided chest tubes and small right apical pneumothorax along with subcutaneous emphysema and small right pleural reaction at the base again noted and stable. Left hemithorax is clear/stable. Mediastinum and cardiac silhouette are normal. IMPRESSION: Stable examination. No new acute process. Continued right apical pneumothorax and possible small right basilar pleural reaction. <Electronically signed by Esau Rich > 08/25/20 0825
[2020-08-25 12:00] VITALS: BP 101/61
--- NOTE | 2020-08-25 12:08 | REP ---
INDICATION: New Air Leak COMPARISON: 08/25/2020 at 7:37 a.m. TECHNIQUE: PA and lateral. FINDINGS: Two chest tubes in stable position. Right apical pneumothorax appears slightly increased prior examination. Remainder of lung newton are stable and without new acute process. Blunting to the bilateral diaphragmatic surfaces and costophrenic angles again noted which may reflect small acute/chronic pleural reactions. IMPRESSION: Small right apical pneumothorax slightly increased from prior examination. <Electronically signed by Esau Rich > 08/25/20 [id number]
[2020-08-25 16:00] VITALS: BP 117/73
--- NOTE | 2020-08-25 18:23 | IPNPDOC ---
Subjective Date Seen The patient was seen on 08/25/20. Subjective Chief Complaint/HPI Mr. Bautista is a 40 year old male who had a spontaneous pneumothorax s/p wedge resection, bullectomy, and talc pleurodesis. Today he is seen sitting up in the chair. Denies any chest pain or dyspnea. Objective Physical Examination General Exam: Positive: Alert, Cooperative Eye Exam: Positive: EOMI; Negative: Sclera icteric ENT Exam: Positive: Atraumatic Neck Exam: Positive: Supple Chest Exam: Positive: Clear to auscultation, Diminished (right lung) Heart Exam: Positive: Rate Normal, Regular Rhythm Abdomen Exam: Positive: Normal bowel sounds, Soft; Negative: Tenderness Extremity Exam: Negative: Edema Neuro Exam: Positive: Normal Speech Psych Exam: Positive: Mental status NL, Mood NL Assessment /Plan Assessment Mr. Bautista is a 40 year old male who had a spontaneous pneumothorax s/p wedge resection, bullectomy, and talc pleurodesis. Dr. Cheung has been managing the chest tube and epidural. Today is POD#8 Plan/VTE VTE Prophylaxis Ordered?: Yes Plan 1. Spontaneous pneumothorax -S/P right upper lobe wedge resection, bullectomy, and talc pleurodesis on 08/17/2020 -Dr. Cheung following and managing chest tube. 2. COPD -Continue inhalers 3. Tobacco use -Currently on nicotine patch 4. Hyperlipidemia -Continue atorvastatin 5. GERD -Continue Protonix 6. DVT ppx -Heparin subQ Disposition: Pending clearance from Dr. Cheung VS, I&O, 24H, Fishbone Vital Signs/I&O Vital Signs Date Time Temp Pulse Resp B/P (MAP) Pulse Ox O2 Delivery O2 Flow Rate FiO2 08/25/20 16:00 97.7 65 17 117/73 (88) 98 Room Air I&O- Last 24 Hours up to 6 AM 08/25/20 06:00 Intake Total 1880 ml Output Total 1025 ml Balance 855 ml Laboratory Data 24H LABS Laboratory Tests 2 08/25/20 05:05: Nucleated Red Blood Cells % (auto) 0.0, Anion Gap 5L, Glomerular Filtration Rate > 60.0, Calcium Level 9.2 CBC/BMP Laboratory Tests 08/25/20 05:05 BILL HEADLEY 11, 2021 18:23
[2020-08-25 20:00] VITALS: BP 119/71
[2020-08-26] MEDS: PERCOCET 5MG/325MG TAB PO PRN (00:22)
[2020-08-26 00:30] VITALS: BP 114/71
[2020-08-26 04:00] VITALS: BP 107/67
[2020-08-26] MEDS: SLF 3 ML SYR IV SCH ×3 (04:20→20:16)
[2020-08-26 05:38] LABS: HEMOGLOBIN 14.8 g/dl (13.5-17.5); MEAN CORPUSCULAR HGB CONC 32.9 g/dl (32.0-36.5); MEAN CORPUSCULAR VOLUME 91.3 fl (80.0-96.0); PLATELET COUNT, AUTOMATED 320 10^3/uL (150-450); RED BLOOD COUNT 4.93 10^6/uL (4.30-6.10); WHITE BLOOD COUNT 9.3 10^3/uL (4.0-10.0)
[2020-08-26 05:47] LABS: BLOOD UREA NITROGEN 15 MG/DL (7-18); CARBON DIOXIDE LEVEL 29 MEQ/L (21-32); CHLORIDE LEVEL 104 MEQ/L (98-107); CREATININE FOR GFR 0.84 MG/DL (0.70-1.30); GLOMERULAR FILTRATION RATE > 60.0 (>60); GLUCOSE, FASTING 94 MG/DL (70-100); POTASSIUM SERUM 4.6 MEQ/L (3.5-5.1); SODIUM LEVEL 137 MEQ/L (136-145)
[2020-08-26] MEDS: LEVALBUTEROL 1.25 MG/0.5 ML CONCENTRATE NEB NEB SCH ×3 (07:08→19:29)
[2020-08-26 08:00] VITALS: BP 116/76
--- NOTE | 2020-08-26 08:02 | REP ---
INDICATION: Chest Tube COMPARISON: 08/25/2020 TECHNIQUE: PA and lateral. FINDINGS: Two right-sided chest tubes, right apical pneumothorax, small amount of subcutaneous emphysema and blunting along the right diaphragmatic surface and costophrenic angle as well as the left hemithorax are stable. No new acute process. IMPRESSION: Stable changes to the right hemithorax. No new acute process. <Electronically signed by Esau Rich > 08/26/20 075
[2020-08-26] MEDS: PANTOPRAZOLE 40MG TAB (PROTONIX) PO SCH (08:03)
[2020-08-26] MEDS: DOCUSATE SODIUM 100MG CAPSULE PO SCH ×2 (08:03→20:16)
[2020-08-26] MEDS: NORCO, ANEXSIA 5/325MG TABLET (HYDROcodone/ACETAMINOPHEN) PO PRN (08:03)
[2020-08-26] MEDS: ATORVASTATIN 20 MG TAB PO SCH (08:03)
[2020-08-26] MEDS: NICOTINE 21MG/24HR 1 EA TRANSDERMAL TD SCH (08:04)
[2020-08-26] MEDS: HEPARIN SOD (PORCINE) 5000UNITS/ML 1ML VIAL/SYRINGE SC SCH ×2 (08:04→20:16)
[2020-08-26] MEDS: MOM 30ML SUSPENSION UDC PO SCH (08:04)
--- NOTE | 2020-08-26 08:11 | IPN ---
PROGRESS NOTE DATE: 08/25/2020 This is now the 8th postoperative day for Mr. Bautista. Chest x-ray shows a very small apical airspace. Nursing staff later in the morning called me noting an air leak. I confirmed that on rounds. Repeat chest x-ray showed the same apical space but no bigger and without subcutaneous emphysema. His vital signs show a maximum temperature of 97.3 with a heart rate that ranges between 72-90 in a sinus rhythm, respiratory rate of 16-18 without the use of accessory muscles, who is 96%-100% saturated on room air, and whose blood pressure is ranging between 101/61 to 117/69. His intake and output for the past 24 hours has been recorded as 880 in and 830 out, for a positivity of 50 mL. He has put 30 mL out of the chest tube. His weight today is 63.8 kg compared to 63.4 kg yesterday. PHYSICAL EXAMINATION: He has equal breath sounds on either side. Percussion note is full to the diaphragm. Cardiac exam is without murmurs, clicks, gallops, or rubs. I cannot feel his point of maximal impulse (PMI). S1 and S2 are normal. Abdomen is soft and nontender. Bowel sounds are positive. There is no hepatomegaly. No costovertebral angle (CVA) tenderness. Extremities show no pretibial edema, no calf tenderness, no differential swelling of the upper extremities. Skin is warm, dry, and perfused without cyanosis or mottling, including that of the nailbeds and knees. Neck is supple. There is no jugular venous distention. No subcutaneous emphysema. Trachea is midline. Mouth shows the mucous membranes to be pink and moist. Lips and commissures without lesions. No thrush. Eyes show his pupils to be equal and reactive. Extraocular motion intact. Sclerae anicteric. Neurologic shows II-XII intact. Normal gross motor, gross sensation intact. Gait is not tested. Psychiatric shows him to be awake, alert, and oriented times three with appropriate mood and affect and conversational. His white count today is 7.8 with a hemoglobin and hematocrit of 14.4 and 43.4, all essentially unchanged from yesterday with a platelet count of 299 and stable. Chemistries today show normal electrolytes with a BUN and creatinine of 14 and 0.85, a glucose of 89, and a calcium of 9.2. His chest x-rays are described above. IMPRESSION: 1. Postoperative day #8 status post talc pleurodesis and wedge resection, right upper lobe. 2. Chronic obstructive pulmonary disease (COPD). 3. Tobacco abuse. 4. Continued air leak. 5. Emphysematous bullous disease. 6. Hypercholesterolemia. PLAN AND DISCUSSION: I was hoping to remove the chest tube today, but I will hold off. We will do a chest x-ray tomorrow and see if the apical airspace is stable. If stable and there is no air leak, I will therefore then remove the chest tubes. Mr. Bautista is expectedly disappointed. I am very sure because of his extensive emphysematous disease and bullous disease that he is probably still leaking from the staple lines, which will eventually stop. In the worse case scenario, I may have to do a blood patch.
[2020-08-26 12:00] VITALS: BP 111/68
--- NOTE | 2020-08-26 13:16 | IPNPDOC ---
Subjective Date Seen The patient was seen on 08/26/20. Subjective Chief Complaint/HPI Mr. Bautista is a 40 year old male who had a spontaneous pneumothorax s/p wedge resection, bullectomy, and talc pleurodesis. He was seen sitting up in bed. Denies chest pain or dyspnea. Dr. Cheung has seen the patient and he will need to keep the chest tube in today. Objective Physical Examination General Exam: Positive: Alert, Cooperative Eye Exam: Positive: EOMI; Negative: Sclera icteric ENT Exam: Positive: Atraumatic Neck Exam: Positive: Supple Chest Exam: Positive: Clear to auscultation, Diminished (right lung) Heart Exam: Positive: Rate Normal, Regular Rhythm Abdomen Exam: Positive: Normal bowel sounds, Soft; Negative: Tenderness Extremity Exam: Negative: Edema Neuro Exam: Positive: Normal Speech Psych Exam: Positive: Mental status NL, Mood NL Assessment /Plan Assessment Mr. Bautista is a 40 year old male who had a spontaneous pneumothorax s/p wedge resection, bullectomy, and talc pleurodesis performed on 08/17/2020. Dr. Cheung has been managing the chest tube and epidural. Patient will need to keep chest tubes in place today Plan/VTE VTE Prophylaxis Ordered?: Yes Plan 1. Spontaneous pneumothorax -S/P right upper lobe wedge resection, bullectomy, and talc pleurodesis on 08/17/2020 -Dr. Cheung following and managing chest tube. 2. COPD -Continue inhalers 3. Tobacco use -Currently on nicotine patch 4. Hyperlipidemia -Continue atorvastatin 5. GERD -Continue Protonix 6. DVT ppx -Heparin subQ Disposition: Patient will need to keep chest tubes in place today. Pending butch morse from Dr. Cheung VS, I&O, 24H, [facility] Vital Signs/I&O Vital Signs Date Time Temp Pulse Resp B/P (MAP) Pulse Ox O2 Delivery O2 Flow Rate FiO2 08/26/20 12:00 97.5 74 19 111/68 (82) 99 Room Air I&O- Last 24 Hours up to 6 AM 08/26/20 06:00 Intake Total 1420 ml Output Total 1655 ml Balance -235 ml Laboratory Data 24H LABS Laboratory Tests 2 08/26/20 04:56: Nucleated Red Blood Cells % (auto) 0.0, Anion Gap 4L, Glomerular Filtration Rate > 60.0, Calcium Level 9.0 CBC/BMP Laboratory Tests 08/26/20 04:56 BILL HEADLEY DO Aug 26, 2020 13:16
[2020-08-26 16:00] VITALS: BP 104/71
[2020-08-26 20:00] VITALS: BP 116/67
[2020-08-27] VITALS: BP 106/62
[2020-08-27] MEDS: LEVALBUTEROL 1.25 MG/0.5 ML CONCENTRATE NEB NEB SCH ×2 (01:11→08:16)
[2020-08-27 04:00] VITALS: BP 109/56
[2020-08-27 05:17] LABS: HEMATOCRIT 45.8 % (42.0-52.0); HEMOGLOBIN 15.3 g/dl (13.5-17.5); MEAN CORPUSCULAR HEMOGLOBIN 30.7 pg (27.0-33.0); MEAN CORPUSCULAR HGB CONC 33.4 g/dl (32.0-36.5); MEAN CORPUSCULAR VOLUME 91.8 fl (80.0-96.0); PLATELET COUNT, AUTOMATED 322 10^3/uL (150-450); RED BLOOD COUNT 4.99 10^6/uL (4.30-6.10)
[2020-08-27 05:46] LABS: BLOOD UREA NITROGEN 16 MG/DL (7-18); CALCIUM LEVEL 9.2 MG/DL (8.5-10.1); CARBON DIOXIDE LEVEL 30 MEQ/L (21-32); CHLORIDE LEVEL 103 MEQ/L (98-107); CREATININE FOR GFR 0.92 MG/DL (0.70-1.30); GLOMERULAR FILTRATION RATE > 60.0 (>60); GLUCOSE, FASTING 95 MG/DL (70-100); POTASSIUM SERUM 4.4 MEQ/L (3.5-5.1); SODIUM LEVEL 136 MEQ/L (136-145)
[2020-08-27] MEDS: SLF 3 ML SYR IV SCH (06:35)
[2020-08-27 08:00] VITALS: BP 116/69
--- NOTE | 2020-08-27 08:27 | REP ---
INDICATION: Eval COMPARISON: 08/26/2020 TECHNIQUE: PA and lateral. FINDINGS: Right-sided chest tubes have been removed. There is a small residual right apical pneumothorax similar to prior examination measuring roughly 2.5 cm in depth from the apex. Remainder of the bilateral lung newton are well aerated, relatively clear and stable. No new acute process appreciated. Mediastinum and cardiac silhouette normal. Small amount of residual subcutaneous emphysema along the right lateral chest wall noted. IMPRESSION: 1. Right chest tubes removed. Right apical pneumothorax unchanged. 2. No new acute process appreciated. <Electronically signed by Esau Rich > 08/27/20 0817
[2020-08-27] MEDS: HEPARIN SOD (PORCINE) 5000UNITS/ML 1ML VIAL/SYRINGE SC SCH (09:00)
[2020-08-27] MEDS: DOCUSATE SODIUM 100MG CAPSULE PO SCH (09:00)
[2020-08-27] MEDS: MOM 30ML SUSPENSION UDC PO SCH (09:00)
[2020-08-27] MEDS: ATORVASTATIN 20 MG TAB PO SCH (09:50)
[2020-08-27] MEDS: PANTOPRAZOLE 40MG TAB (PROTONIX) PO SCH (09:50)
[2020-08-27] MEDS: NICOTINE 21MG/24HR 1 EA TRANSDERMAL TD SCH (09:50)
[2020-08-27] MEDS ORDERED: NICO21PAT TD (10:55)
--- NOTE | 2020-08-27 17:18 | DS.PDOC ---
Discharge Summary General Date of Admission Aug 14, 2020 at 11:40 Date of Discharge Aug 27, 2020 Attending Physician: BILL HEADLEY DO Specialist/Consultants Involve CT surgery, Dr. Cheung Discharge Summary PROCEDURES PERFORMED DURING STAY: Right upper lobe wedge resection, bullectomy and talc pleurodesis By Dr. Cheung on 08/17/2020 ADMITTING DIAGNOSES: 1. Spontaneous pneumothorax 2. COPD 3. Tobacco use 4. Hyperlipidemia 5. Emphysematous bullous disease DISCHARGE DIAGNOSES: 1. Spontaneous pneumothorax 2. COPD 3. Tobacco use 4. Hyperlipidemia 5. Emphysematous bullous disease COMPLICATIONS/CHIEF COMPLAINT: Pneumothorax. HISTORY OF PRESENT ILLNESS: Mr. Bautista is a 40-year-old male with COPD and 2 pneumothoraces in the past who presents with dyspnea. On day of admission, he woke up at 6 AM with dyspnea and cough. He suspected that he had another pneumothorax. He came into the ED for evaluation. Imaging demonstrated a large right pneumothorax. CT surgery, Dr. Cheung, was consulted, and patient was admitted for recurrent spontaneous pneumothorax. This was pneumothorax #3 HOSPITAL COURSE: Dr. Cheung evaluated patient and placed a chest tube to relieve the pneumothorax. He discussed the importance of smoking cessation and started the patient on a nicotine patch. On 08/17/2020, patient was taken to the OR for right upper lobe wedge resection, bullectomy and talc pleurodesis. Patient had chest tubes for a prolonged time due to air leaks. It took longer than normal due to his poor lung parenchyma. On 08/26/2020, his chest tube was removed. This morning he felt well. Denies any chest pain, dyspnea, or abdominal pain. Dr. Cheung cleared him for home, and he was discharged home. DISCHARGE MEDICATIONS: Please see below. ALLERGIES: Please see below. PHYSICAL EXAMINATION ON DISCHARGE: VITAL SIGNS: Please see below. GENERAL: Comfortable, in no apparent distress. Appears very thin HEENT: Head normocephalic/atraumatic, EOMI, sclera clear. NECK: Supple RESPIRATORY: Lungs clear to auscultation. CARDIOVASCULAR: Regular rate and rhythm. ABDOMEN: Soft, nontender, no guarding or rebound tenderness. Normal bowel sounds. MUSCLE SKELETAL: Muscle strength 5/5 in all extremities. NEUROLOGICAL: CN 312 grossly intact, no focal deficits noted. PSYCHOLOGICAL: Normal mood and affect LABORATORY DATA: Please see below. IMAGING: Radiologist interpretation CXR on 08/14/2020 Large right pneumothorax with right lung atelectatic changes. Critical Findings: Large right pneumothorax with slight shift of heart mediastinal structures to the left. PROGNOSIS: Good ACTIVITY: As tolerated. DIET: Regular DISCHARGE PLAN: Home DISPOSITION: 01 Home, Self-Care. DISCHARGE INSTRUCTIONS: 1. Follow up with Dr. Cheung in 1 week DISCHARGE CONDITION: Stable. Total time spent on discharge planning, discharge summary, and medication reconciliation: 40 minutes Vital Signs/I&Os Vital Signs Date Time Temp Pulse Resp B/P (MAP) Pulse Ox O2 Delivery O2 Flow Rate FiO2 08/27/20 08:00 96.8 67 20 116/69 (85) 95 Room Air I&O- Last 24 Hours up to 6 AM 08/27/20 06:00 Intake Total 2255 ml Output Total 3625 ml Balance -1370 ml Laboratory Data Labs 24H Laboratory Tests 2 08/27/20 05:05: Nucleated Red Blood Cells % (auto) 0.0, Anion Gap 3L, Glomerular Filtration Rate > 60.0, Calcium Level 9.2 CBC/BMP Laboratory Tests 08/27/20 05:05 Discharge Medications Scheduled Atorvastatin Calcium (Atorvastatin Calcium) 20 Mg Tablet, 20 M PO DAILY, (Reported) Nicotine (Nicotine Patch) 21 Mg Patch.td24, 1 PATCH TD DAILY Umeclidinium [place] (Incruse Ellipta) 62.5 Mcg Blst.w.dev, 1 PUFF INH DAILY, (Reported) Scheduled PRN Albuterol Sulfate (Albuterol Sulfate Hfa) 8.5 Gm Hfa.aer.ad, 2 PUFF INH PRN PRN for SHORTNESS OF BREATH, (Reported) Allergies Coded Allergies: latex (Verified Allergy, Unknown, hives, 12/29/19) tramadol (Verified Adverse Reaction, Unknown, nausea, 12/29/19) BILL HEADLEY 13, 2021 16:21
--- NOTE | 2020-08-28 14:00 | IPN ---
PROGRESS NOTE DATE: 08/26/2020 SUBJECTIVE: This is now the ninth postoperative day for Mr. Bautista. There is no air leak and his chest x-ray shows his lungs fully expand to the chest wall with just a bare minimum of an apical air space. I will therefore remove his chest tubes. OBJECTIVE: VITAL SIGNS: Show a T-max of 98.0 with a heart rate that ranges between 62 and 89 in sinus rhythm. Respiratory rate of 16 to 19 without the use of accessory muscles who was 95% to 100% saturated on room air and whose blood pressure is ranging between 104/71 to 116/76. INTAKE AND OUTPUT: Over the past 24 hours has been recorded as 1420 in and 1640 out for a negativity of 220 mL. He has put 15 mL out the chest tube. His weight is 63.3 kg today compared to 63.8 kg yesterday. RESPIRATORY: His lungs show equal breath sounds on either side. There are no wheezes, rhonchi, or rales. His percussion notes are full to the diaphragm. CARDIAC: Without murmurs, clicks, gallops, or rubs. I cannot feel his PMI. S1 and S2 are normal. ABDOMEN: Soft and nontender. Bowel sounds are positive. There is no hepatomegaly. No CVA tenderness. EXTREMITIES: Show no pretibial edema. No calf tenderness. No differential swelling of the upper extremities. SKIN: Warm, dry, and perfused without cyanosis or mottling, including that of the nail beds and knees. NECK: Supple. There is no jugular venous distention. No subcutaneous emphysema. Trachea is midline. MOUTH: Shows the mucous membranes to be pink and moist. Lips and commisures are without lesions and no thrush. EYES: Show his pupils equal and reactive. Extraocular movements are intact. Sclerae nonicteric. NEUROLOGIC: Shows II through XII intact. Normal gross motor, gross sensation intact. Gait is not tested. PSYCHIATRIC: Shows him to be awake, alert, and oriented x3 with appropriate mood and affect and conversational. LABORATORY DATA: His white count today is 9.3 with hemoglobin and hematocrit of 14.8 and 45.0 essentially unchanged from yesterday with platelet count stable at 320.000. Chemistries today show normal electrolytes with a BUN and creatinine of 15 and 0.84 with a glucose of 94 and a calcium of 9.0. IMAGING DATA: His chest x-ray today is as described above. Costophrenic angles are sharp. There are no infiltrates. IMPRESSION: 1. Postoperative day #9 status post talc pleurodesis with wedge resection right upper lobe. 2. Chronic obstructive pulmonary disease (COPD). 3. Tobacco abuse. 4. Continued air leak now resolved. 5. Emphysematous bullous disease. 6. Hypercholesterolemia. PLAN AND DISCUSSION: I will discontinue his chest tubes today. We will hold him overnight for a chest x-ray tomorrow. If his chest x-ray is acceptable, we will discharge him.
--- NOTE | 2020-08-28 14:53 | DSES ---
DISCHARGE SUMMARY DATE OF ADMISSION: 08/14/2020 DATE OF DISCHARGE: 08/27/2020 DISCHARGE DIAGNOSES: 1. Spontaneous pneumothorax, third occurrence. 2. Chronic obstructive pulmonary disease (COPD). 3. Tobacco abuse. 4. Emphysematous bullous disease. 5. Hypercholesterolemia. 6. Postoperative day #9 status post talc pleurodesis and wedge resection right upper lobe. 7. 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 HOSPITAL COURSE: The patient is a 40-year-old white male who presented to the emergency room with a prior history of two spontaneous pneumothoraces on the right in 2013 and 2011. These were treated with a chest tube and prolonged hospitalization in 2013. On the morning of admission on 08/14/2020, he awoke suddenly with pain and shortness of breath in the right hemithorax. He had a pre-event smoker's cough, but nothing out of the usual. He does not bring up sputum. He has no fever, chills, or sweats. No dysphagia. No weight loss. He smokes about one pack per day. An anterior-superior chest tube was placed and he continued to have an air leak and therefore, he was taken to the operating room on 08/17/2020, where he underwent a right upper lobe wedge resection, bullectomy, and talc pleurodesis with a five-level rib block and bronchoscopy all with VATS techniques. The patient had a significant postoperative course with continued postoperative air leak. In and around postoperative day #7, his air leak had disappeared and chest tube suction was discontinued. Subsequent x-ray the next day showed the lung to have fallen 3 cm to the chest wall and he was therefore placed on suction again with the lung expanding to the chest wall. Again, suction was weaned from 40 to 20 to off, and the lung remained applied to the chest wall except for a very small apical air space. There was no air leak and the chest tube was therefore removed. DISCHARGE MEDICATIONS: He is being discharged on his home medications, which include: 1. Albuterol sulfate inhaler two puffs p.r.n. shortness of breath q.i.d. 2. Atorvastatin 20 mg q. day. 3. Incruse Ellipta 62.5 one puff q. day. 4. He is also being placed on nicotine patch. DISCHARGE FOLLOW-UP: I will see him back in the office in one week with a chest x-ray. DISCHARGE INSTRUCTIONS: He has been asked not to undertake any heavy lifting, but to be active in walking. I have also asked him to use his respiratory apparatus for deep breathing exercises. I have of course counseled him strongly about smoking cessation.
== END 2020-08-27 11:59 | disposition home or self-care (01) | DRG 165 ==
LOC: M ED 10:58 → M ED INP 11:40 → M PCU 13:05 → M ICU 08-17 16:55 → M PCU 08-18 15:11
PROVIDERS: ADMIT Thoracic Surgery (Cardiothoracic Vascular Surgery); ATTEND Internal Medicine
PROC: 0W9930Z Drainage of Right Pleural Cavity with Drainage Device, Percutaneous Approach (ICD-10-PCS; 2020-08-14)
PROC: 0BJ08ZZ Inspection of Tracheobronchial Tree, Via Natural or Artificial Opening Endoscopic (ICD-10-PCS; 2020-08-17)
PROC: 3E0L3GC Introduction of Other Therapeutic Substance into Pleural Cavity, Percutaneous Approach (ICD-10-PCS; 2020-08-17)
PROC: 0BBC4ZZ Excision of Right Upper Lung Lobe, Percutaneous Endoscopic Approach (ICD-10-PCS; principal; 2020-08-17 12:40)
DX: J93.83 Other pneumothorax (principal); J43.9 Emphysema, unspecified; E78.5 Hyperlipidemia, unspecified; F17.210 Nicotine dependence, cigarettes, uncomplicated; J93.82 Other air leak; Z20.822 Contact with and (suspected) exposure to COVID-19; Z79.899 Other long term (current) drug therapy; Z88.5 Allergy status to narcotic agent; Z91.040 Latex allergy status; Z91.82 Personal history of military deployment

== ENCOUNTER → 2020-09-01 | Outpatient (REF) | payer MEDICARE, MEDICAID ==
[~2020-09-01] MED LIST changes: +NICO21PAT TD
[2020-09-01 12:33] LABS: BASO # 0.1 10^3/uL (0.0-0.2); EOS # 0.4 10^3/uL (0.0-0.5); EOS % 3.8 % (0.0-3.0); HEMATOCRIT 47.7 % (42.0-52.0); HEMOGLOBIN 16.1 g/dl (13.5-17.5); LYMPH # 2.9 10^3/uL (1.5-5.0); LYMPH % 26.8 % (24.0-44.0); MEAN CORPUSCULAR HEMOGLOBIN 30.3 pg (27.0-33.0); MEAN CORPUSCULAR HGB CONC 33.8 g/dl (32.0-36.5); MEAN CORPUSCULAR VOLUME 89.7 fl (80.0-96.0); MONO # 0.7 10^3/uL (0.0-0.8); MONO % 6.6 % (2.0-8.0); NEUTROPHILS # 6.5 10^3/uL (1.5-8.5); NEUTROPHILS % 60.9 % (36.0-66.0); PLATELET COUNT, AUTOMATED 397 10^3/uL (150-450); RED BLOOD COUNT 5.32 10^6/uL (4.30-6.10); WHITE BLOOD COUNT 10.7 10^3/uL (4.0-10.0)
[2020-09-01 13:08] LABS: ALT/SGPT 32 U/L (12-78); BILIRUBIN,TOTAL 0.3 MG/DL (0.2-1.0); BLOOD UREA NITROGEN 13 MG/DL (7-18); CALCIUM LEVEL 9.6 MG/DL (8.5-10.1); CARBON DIOXIDE LEVEL 30 MEQ/L (21-32); CHLORIDE LEVEL 105 MEQ/L (98-107); CHOLESTEROL LEVEL 155 MG/DL (<200); CHOLESTEROL RISK RATIO 4.189 (<5); GLOMERULAR FILTRATION RATE > 60.0 (>60); GLUCOSE, FASTING 85 MG/DL (70-100); HDL CHOLESTEROL 37 MG/DL (>40); LDL CHOLESTEROL 85 MG/DL (<100); NON-HDL-C 118 MG/DL; POTASSIUM SERUM 4.7 MEQ/L (3.5-5.1); SODIUM LEVEL 140 MEQ/L (136-145); TOTAL PROTEIN 7.3 GM/DL (6.4-8.2); TRIGLYCERIDES LEVEL 163 MG/DL (<150)
[2020-09-01 13:35] LABS: TOTAL 25(OH) VITAMIN D 17.3 NG/ML (30.0-100.0)
== END ==
LOC: M LAB REF 11:37
PROVIDERS: ATTEND Nurse Practitioner Family
DX: E78.5 Hyperlipidemia, unspecified (principal); F17.200 Nicotine dependence, unspecified, uncomplicated; J44.9 Chronic obstructive pulmonary disease, unspecified

== ENCOUNTER → 2020-09-05 | Outpatient (CLI) | payer MEDICARE, MEDICAID ==
--- NOTE | 2020-09-05 11:23 | REPPI ---
INDICATION: J43.9 EMPHYSEMA F17.218 NICOTINE DEPENDENCE. COMPARISON: Comparison chest x-ray August 27, 2020. TECHNIQUE: Three views... FINDINGS: There is a small residual right apical pneumothorax. This is decreased from the 27 August 2020 prior study. No left-sided pneumothorax is seen. There is minimal pleuroparenchymal scarring in the right lung apex. Lung newton are otherwise clear. Pleural angles are sharp. Heart is not enlarged. No significant bony abnormality is seen. IMPRESSION: Small residual right apical pneumothorax persists. Otherwise no active disease.. <Electronically signed by Jp Rodríguez > 09/05/20 1121
== END ==
LOC: M PLAIMG 09:00 → M PLALAB 09:00
PROVIDERS: ATTEND Thoracic Surgery (Cardiothoracic Vascular Surgery)
DX: J43.9 Emphysema, unspecified (principal); F17.218 Nicotine dependence, cigarettes, with other nicotine-induced disorders

== ENCOUNTER → 2020-09-26 | Outpatient (CLI) | payer MEDICARE, MEDICAID ==
--- NOTE | 2020-09-26 08:50 | REPPI ---
INDICATION: EMPHYSEMA,SPONATNEOUS PNEUMOTHORAX COMPARISON: None. TECHNIQUE: PA and lateral. FINDINGS: The mediastinum and cardiac silhouette are normal. The lung newton are clear and without acute consolidation, effusion, or pneumothorax. The skeletal structures are intact and normal. IMPRESSION: No acute cardiopulmonary process. <Electronically signed by Esau Rich > 09/26/20 0874
== END ==
LOC: M PLALAB 08:17 → M PLAIMG 08:17
PROVIDERS: ATTEND Thoracic Surgery (Cardiothoracic Vascular Surgery)
DX: J43.9 Emphysema, unspecified (principal); J93.11 Primary spontaneous pneumothorax; Z48.813 Encounter for surgical aftercare following surgery on the respiratory system

== ENCOUNTER → 2020-09-29 | Outpatient (CLI) | payer MEDICARE, MEDICAID ==
[~2020-09-29] MED LIST changes: +IBUP80TA PO
--- NOTE | 2020-09-29 11:28 | REP ---
INDICATION: CRUSH INJURY LEFT THUMB COMPARISON: None. TECHNIQUE: Four views left 1st digit. FINDINGS: There is no evidence of acute fracture, dislocation, or intrinsic bone disease. IMPRESSION: No fracture or dislocation. <Electronically signed by Juan Dickinson > 09/29/20 0384
== END ==
LOC: M RAD 11:02
PROVIDERS: ATTEND Physician Assistant
DX: S69.92XA Unspecified injury of left wrist, hand and finger(s), initial encounter (principal); W18.30XA Fall on same level, unspecified, initial encounter; Y92.009 Unspecified place in unspecified non-institutional (private) residence as the place of occurrence of the external cause

== ENCOUNTER 2020-09-30 21:41 | Emergency (ER) | payer MEDICARE, MEDICAID ==
[~2020-09-30] VITALS: Ht 177.8 cm; Wt 65.6 kg
[~2020-09-30 21:41] MED LIST changes: -IBUP80TA PO
[2020-09-30 21:42] VITALS: BP 121/82
[2020-09-30] MEDS ORDERED: IBUP80TA PO (21:47)
== END 2020-09-30 23:31 | disposition left against medical advice (07) ==
LOC: M ED 21:41
DX: Z53.21 Procedure and treatment not carried out due to patient leaving prior to being seen by health care provider (principal)

== ENCOUNTER → 2021-09-12 | Outpatient (REF) ==
[~2021-09-12] MED LIST changes: +IBUP80TA PO
== END ==
LOC: M PLAIMG 10:52
PROVIDERS: ATTEND Internal Medicine
DX: Z00.00 Encounter for general adult medical examination without abnormal findings (principal)

== ENCOUNTER → 2021-10-04 | Outpatient (CLI) | payer MEDICARE, MEDICAID | LOC: M RAD 11:49 | PROVIDERS: ATTEND Nurse Practitioner Family | DX: M54.2 Cervicalgia (principal) ==

== ENCOUNTER → 2021-10-13 | Outpatient (CLI) | payer MEDICARE | LOC: M PAIN 09:00 | PROVIDERS: ATTEND Nurse Practitioner Family | DX: M54.2 Cervicalgia (principal); E78.5 Hyperlipidemia, unspecified; J44.9 Chronic obstructive pulmonary disease, unspecified; E78.00 Pure hypercholesterolemia, unspecified; K21.9 Gastro-esophageal reflux disease without esophagitis; F41.9 Anxiety disorder, unspecified; F17.210 Nicotine dependence, cigarettes, uncomplicated; Z79.899 Other long term (current) drug therapy; Z88.8 Allergy status to other drugs, medicaments and biological substances; Z91.040 Latex allergy status ==

== ENCOUNTER → 2021-11-28 | Outpatient (CLI) | payer MEDICARE | LOC: M PLAIMG 12:32 | PROVIDERS: ATTEND Nurse Practitioner Family | DX: M54.2 Cervicalgia (principal) ==

== ENCOUNTER 2022-07-10 07:41 | Emergency (ER) | payer MEDICARE, OTHER ==
[~2022-07-10] VITALS: Ht 177.8 cm; Wt 65.9 kg
[2022-07-10 07:42] VITALS: BP 119/82
== END 2022-07-10 12:16 | disposition left against medical advice (07) ==
LOC: M ED 07:41
DX: Z53.21 Procedure and treatment not carried out due to patient leaving prior to being seen by health care provider (principal)